=== PATIENT | male | born 1990 | race Caucasian/White ===

== ENCOUNTER 2020-07-05 20:48 | Emergency (ER) | payer SELFPAY ==
[~2020-07-05] VITALS: Ht 173 cm; Wt 125.5 kg
--- OUTSIDE RECORDS SUMMARY | 2020-07-05 20:54 | XMS REPORT ---
Author Author Samm Farooq Doctor Organization [facility] Address Unknown Phone Unavailable Care Team Providers Care Brick Tester Name Role Phone Migration, Doctor Unavailable Unavailable PROBLEMS Type Condition ICD9-CM Code UUQ04-MG Code Onset Dates Condition S tatus SNOMED Code Problem Snoring R06.83 Active 62662737 Problem Hypertriglyceridemia E78.1 Active 797285649 Problem Elevated liver enzymes R74.8 Active 507079278 Problem Type 2 diabetes mellitus without complication E11. 9 Active 89158577 Problem Benign essential hypertension I10 Active 0194045 Problem Daytime hypersomnia G47.19 Active [id number] ALLERGIES No Information ENCOUNTERS Encounter Location Date Diagnosis [facility] [address] [place] [id number] [address] [place] [phone] Aug, [facility] [address] [id number] [address] [place] [phone] Jul, [facility] [address] [id number] [address] [place] [address] Jul, [facility] [address] [id number] [address] [place] [address] Jul, Hypertriglyceridemia E78.1 [facility] [address] [id number] [address] [place] [address] Jul, [facility] [address] [id number] [address] [place] [address] Jul, Type 2 diabetes mellitus wit hout complication E11.9 ; Fatigue R53.83 ; Morbid obesity E66.01 and Benign essential hypertension I10 [facility] [address] [facility] [id number] [address] [place] [address] May, [facility] [address] [id number] [address] [place] [phone] May, Type 2 diabetes mellitus wit hout complication E11.9 and Fatigue R53.83 [facility] [address] [place] [id number] [address] [place] [phone] Mar, [place] [address] [address] Mar, [facility] [address] [place] [id number] [place] [address] Jan, Strep pharyngitis J02.0 ; Si de pain R10.9 and Morbid obesity E66.01 [place] [address] [address] Dec, Coughing R05 ; Type 2 diabet es mellitus without complication E11.9 ; Benign essential hypertension I10 ; Right otitis media with effusion H65.91 ; Acute upper respiratory infection, unspecified J06.9 and BMI 45.0-49.9, adult Z68.42 [facility] [address] [address] 04 Oct, 2017 Sore throat J02.9 ; Strep ph aryngitis J02.0 and BMI 40.0-44.9, adult Z68.41 [place] [address] [address] 03 Aug, 2017 Type 2 diabetes mellitus wit hout complication E11.9 and Benign essential hypertension I10 [place] [address] [address] March, [place] [address] [place] [id number] [place] [address] Dec, [facility] [address] [address] Dec, Pharyngitis due to other org anism J02.8 [place] [address] [place] [id number] [address] [place] [address] Dec, [place] [address] [address] Oct, [facility] [address] [facility] [place] [place] [id number] [address] [place] [phone] May, [facility] [address] [facility] [id number] [address] [place] [phone] May, [facility] [address] [facility] [id number] [address] [place] [address] May, Elevated liver enzymes R74.8 [facility] [address] [facility] [place] [id number] [address] [place] [phone] May, [facility] [address] [facility] [place] [id number] [address] [place] [phone] May, [facility] [address] [place] [id number] [address] [place] [phone] May, Benign essential hypertensio n I10 ; Type 2 diabetes mellitus without complication E11.9 and Elevated liver enzymes R74.8 [facility] [place] [id number] [place] [address] May, [facility] [address] [place] [id number] [address] [place] [address] May, [facility] [address] [place] [id number] [address] [place] [phone] Mar, Elevated liver enzymes R74.8 and Type 2 diabetes mellitus without complication E11.9 [place] [address] [place] [id number] [address] [place] [address] Jan, Benign essential hypertensio n I10 ; Fatigue R53.83 ; Family history of diabetes mellitus Z83.3 ; Snoring R06.83 and Daytime hypersomnia G47.19 [facility] [address] [place] [id number] [address] [place] [phone] Jan, Benign essential hypertensio n I10 ; Vomiting R11.10 ; Bronchitis J40 ; Headache R51 and Strep throat J02.0 [facility] IN [facility] [address] [id number] [address] [place] [address], [place] [address] 10 Oct, 2015 Acute bronchitis J20.9 and H TN (hypertension) I10 [facility] [address] [id number] [address] [place] [address], [place] [address] Jul, [facility] [address] [id number] [address] [place] [address], [place] [address] Mar, [facility] [address] [id number] [address] [place] [address], [place] [address] Mar, [facility] [address] [id number] [address] [place] [address], [place] [address] Aug, [facility] [address] [id number] [address] [place] [address], [place] [address] Aug, [facility] [address] [id number] [address] [place] [address], [place] [address] Aug, [facility] [address] [id number] [address] [place] [address], [place] [address] Aug, [facility] [address] [id number] [address] [place] [address], [place] [address] Jul, [facility] [address] [id number] [address] [place] [address], [place] [address] Jul, [facility] [address] [id number] [address] [place] [address], [place] [address] Jul, [facility] [address] [id number] [address] [place] [phone] Jul, [facility] [address] [id number] [address] [place] [address], [place] [address] Dec, [facility] [address] [id number] [address] [place] [address], [place] [address] Dec, [facility] [address] [id number] [address] [place] [phone] May, [facility] [address] [id number] [address] [place] [phone] May, [facility] [address] [facility] [place] [id number] [address] [address] May, IMMUNIZATIONS No Known Immunizations SOCIAL HISTORY Never Assessed REASON FOR VISIT PLAN OF CARE VITAL SIGNS Height 68 in 2014-09-27 Weight 283.3 lbs 2014-09-27 Temperature 102.4 degrees Fahrenheit 2014-09-27 Heart Rate 120 bpm 2014-09-27 Respiratory Rate 20 2014-09-27 Blood pressure systolic 134 mmHg 2014-09-27 Blood pressure diastolic 92 mmHg 2014-09-27 MEDICATIONS Unknown Medications RESULTS No Results PROCEDURES Procedure Date Ordered Result Body Site INFLUENZA ASSAY W/OPTIC Sep 27, 2014 INSTRUCTIONS MEDICATIONS ADMINISTERED No Known Medications MEDICAL (GENERAL) HISTORY Type Description Date Medical History HTN Medical History Diabetes Mellitus 01/2016 A1C 9.9 Medical History Elevated liver enzymes Surgical History No Surgical history information
--- OUTSIDE RECORDS SUMMARY | 2020-07-05 20:54 | XMS REPORT ---
Author Author Samm Farooq Doctor Organization [facility] Address Unknown Phone Unavailable Care Team Providers Care Lye Peel Operator Name Role Phone Migration, Doctor Unavailable Unavailable PROBLEMS Type Condition ICD9-CM Code ESV79-XP Code Onset Dates Condition S tatus SNOMED Code Problem Elevated liver enzymes R74.8 Active 395019472 Problem Hypertriglyceridemia E78.1 Active 142179005 Problem Obesity, morbid, BMI 40.0-49.9 E66.01 Active 494008675 Problem Type 2 diabetes mellitus without complication E11. 9 Active 04822872 Problem Benign essential hypertension I10 Active 3463251 Problem Daytime hypersomnia G47.19 Active [id number] Problem Snoring R06.83 Active 27928123 ALLERGIES No Information ENCOUNTERS Encounter Location Date Diagnosis [facility] [address] [facility] [id number] [address] [place] [phone] May, [facility] [address] [facility] [id number] [address] [place] [phone] May, [facility] [address] [facility] [id number] [address] [place] [phone] May, [facility] [address] [facility] [id number] [address] [place] [address] May, Encounter for laboratory darryn ting for COVID-[address] [facility] [address] [facility] [id number] [address] [place] [phone] May, [facility] [address] [facility] [id number] [address] [place] [phone] May, [facility] [address] [facility] [id number] [address] [place] [phone] March, [facility] [address] [facility] [id number] [address] [place] [phone] March, [facility] [address] [id number] [address] [place] [phone] Mar, Type 2 diabetes mellitus wit hout complication E11.9 ; Benign essential hypertension I10 ; Hypertriglyceridemia E78.1 and Obesity, morbid, BMI 40.0-49.[address] [facility] [address] [facility] [id number] [address] [place] [phone] Mar, Type 2 diabetes mellitus wit hout complication E11.9 and Benign essential hypertension I10 [facility] [address] [id number] [address] [place] [phone] Jan, [facility] [address] [facility] [id number] [address] [place] [phone] Dec, [facility] [address] [facility] [id number] [address] [place] [phone] Aug, [facility] [address] [facility] [id number] [address] [place] [phone] Jul, [facility] [address] [id number] [address] [place] [phone] Jul, [facility] [address] [facility] [id number] [address] [place] [address] Jul, Hypertriglyceridemia E78.1 [facility] [address] [facility] [id number] [address] [place] [phone] Jul, [facility] [address] [facility] [id number] [address] [place] [phone] Jul, Type 2 diabetes mellitus wit hout complication E11.9 ; Fatigue R53.83 ; Morbid obesity E66.01 and Benign essential hypertension I10 [facility] [address] [facility] [id number] [address] [place] [phone] May, [facility] [address] [facility] [id number] [address] [place] [address] May, Type 2 diabetes mellitus wit hout complication E11.[address] [facility] [address] [address] Mar, [place] [address] [address] Mar, [facility] [address] [address] Jan, Strep pharyngitis J02.0 ; Si de pain R10.9 and Morbid obesity E66.01 [place] [address] [id number] 03 Dec, 2017 Coughing R05 ; Type 2 diabet es mellitus without complication E11.9 ; Benign essential hypertension I10 ; Right otitis media with effusion H65.91 ; Acute upper respiratory infection, unspecified J06.9 and BMI 45.0-49.9, adult Z68.42 [facility] [place] [address] [address] Oct, Sore throat J02.9 ; Strep ph aryngitis J02.0 and BMI 40.0-44.9, adult Z68.41 [place] [address] [address] 03 Aug, 2017 Type 2 diabetes mellitus wit hout complication E11.9 and Benign essential hypertension I10 [place] [address] [address] March, [place] [address] [address] Dec, [facility] [address] [address] Dec, Pharyngitis due to other org anism J02.8 [place] [address] [address] Dec, [place] [address] [address] Oct, [place] [address] [place] [id number] [address] [place] [phone] May, [facility] [address] [address] May, [facility] [address] [place] [id number] [place] [address] May, Elevated liver enzymes R74.8 [facility] [address] [address] May, [facility] [address] [place] [id number] [address] [place] [phone] May, [facility] [address] [address] May, Benign essential hypertensio n I10 ; Type 2 diabetes mellitus without complication E11.9 and Elevated liver enzymes R74.8 [facility] IN [place] [address] [address] May, [facility] [address] [place] [id number] [address] [place] [phone] May, [facility] [address] [address] Mar, Elevated liver enzymes R74.8 and Type 2 diabetes mellitus without complication E11.9 [place] [address] [place] [id number] [address] [place] [phone] Jan, Benign essential hypertensio n I10 ; Fatigue R53.83 ; Family history of diabetes mellitus Z83.3 ; Snoring R06.83 and Daytime hypersomnia G47.19 [facility] WALK IN [address] [address] Jan, Benign essential hypertensio n I10 ; Vomiting R11.10 ; Bronchitis J40 ; Headache R51 and Strep throat J02.0 [facility] WALK IN [address] [address] Oct, Acute bronchitis J20.9 and H TN (hypertension) I10 [facility] [address] [id number] [address] [place] [address], [place] [address] Jul, [facility] [address] [id number] [address] [place] [address], [place] [address] Mar, [facility] [address] [id number] [address] [place] [address], [place] [address] Mar, [facility] [address] [id number] [address] [place] [address], [place] [address] Aug, [facility] [address] [id number] [address] [place] [address], [place] [address] Aug, [facility] [address] [id number] [address] [place] [address], [place] [address] Aug, [facility] [address] [id number] [address] [place] [address], [place] [phone] Aug, [facility] [address] [id number] [address] [place] [address], [place] [address] Jul, [facility] [address] [id number] [address] [place] [address], [place] [address] Jul, [facility] [address] [id number] [address] [place] [address], [place] [address] Jul, [facility] [address] [id number] [address] [place] [address], [place] [address] Jul, [facility] [address] [id number] [address] [place] [phone] Dec, [facility] [address] [id number] [address] [place] [phone] Dec, [facility] [address] [id number] [address] [place] [address], [place] [address] May, [facility] [address] [id number] [address] [place] [address], [place] [address] May, [facility] [address] [id number] [address] [place] [address] May, IMMUNIZATIONS No Known Immunizations SOCIAL HISTORY Never Assessed REASON FOR VISIT PLAN OF CARE VITAL SIGNS MEDICATIONS Unknown Medications RESULTS No Results PROCEDURES No Known procedures INSTRUCTIONS MEDICATIONS ADMINISTERED No Known Medications MEDICAL (GENERAL) HISTORY Type Description Date Medical History HTN Medical History Diabetes Mellitus 01/2016 A1C 9.9 Medical History Elevated liver enzymes Surgical History No Surgical history information
--- OUTSIDE RECORDS SUMMARY | 2020-07-05 20:54 | XMS REPORT ---
Author Author Samm Farooq Doctor Organization [facility] Address Unknown Phone Unavailable Care Team Providers Care Certified Adaptive Physical Educator Name Role Phone Migration, Doctor Unavailable Unavailable PROBLEMS Type Condition ICD9-CM Code RYR10-UU Code Onset Dates Condition S tatus SNOMED Code Problem Snoring R06.83 Active 90635524 Problem Hypertriglyceridemia E78.1 Active 548132250 Problem Elevated liver enzymes R74.8 Active 022340011 Problem Type 2 diabetes mellitus without complication E11. 9 Active 14586431 Problem Benign essential hypertension I10 Active 7032348 Problem Daytime hypersomnia G47.19 Active [id number] ALLERGIES No Information ENCOUNTERS Encounter Location Date Diagnosis [place] [address] [place] [phone] Jan, [facility] [address] [place] [id number] [address] [place] [phone] Dec, [facility] [address] [place] [id number] [address] [place] [phone] Aug, [facility] [address] [place] [phone] Jul, [facility] [address] [place] [address] Jul, [facility] [address] [place] [id number] [address] [place] [address] Jul, Hypertriglyceridemia E78.1 [facility] [address] [place] [id number] [place] [phone] Jul, [facility] [address] [place] [id number] [address] [place] [address] Jul, Type 2 diabetes mellitus wit hout complication E11.9 ; Fatigue R53.83 ; Morbid obesity E66.01 and Benign essential hypertension I10 [facility] [address] [place] [id number] [place] [phone] May, [place] [address] [address] May, Type 2 diabetes mellitus wit hout complication E11.9 and Fatigue R53.83 [place] [address] [address] Mar, [place] [address] [address] Mar, [facility] [place] [address] [address] Jan, Strep pharyngitis J02.0 ; Si de pain R10.9 and Morbid obesity E66.01 [place] [address] [address] Dec, Coughing R05 ; Type 2 diabet es mellitus without complication E11.9 ; Benign essential hypertension I10 ; Right otitis media with effusion H65.91 ; Acute upper respiratory infection, unspecified J06.9 and BMI 45.0-49.9, adult Z68.42 [facility] [place] [address] [address] Oct, Sore throat J02.9 ; Strep ph aryngitis J02.0 and BMI 40.0-44.9, adult Z68.41 [place] [address] [address] Aug, Type 2 diabetes mellitus wit hout complication E11.9 and Benign essential hypertension I10 [place] [address] [address] March, [place] [address] [address] Dec, [facility] [address] [address] Dec, Pharyngitis due to other org anism J02.8 [facility] [address] [facility] [id number] [address] [place] [address] Dec, [facility] [address] [facility] [id number] [address] [place] [phone] Oct, [facility] [address] [facility] [id number] [address] [place] [address] May, [facility] [address] [facility] [id number] [address] [place] [address] May, [facility] [address] [facility] [id number] [address] [place] [address] May, Elevated liver enzymes R74.8 [facility] [address] [place] [id number] [address] [place] [phone] May, [facility] [address] [place] [id number] [address] [place] [phone] May, [facility] [address] [facility] [id number] [address] [place] [address] May, Benign essential hypertensio n I10 ; Type 2 diabetes mellitus without complication E11.9 and Elevated liver enzymes R74.8 [facility] [address] [place] [id number] [address] [place] [address] May, [facility] [address] [facility] [id number] [address] [place] [phone] May, [facility] [address] [facility] [id number] [address] [place] [address] Mar, Elevated liver enzymes R74.8 and Type 2 diabetes mellitus without complication E11.9 [facility] [address] [facility] [id number] [address] [place] [address] Jan, Benign essential hypertensio n I10 ; Fatigue R53.83 ; Family history of diabetes mellitus Z83.3 ; Snoring R06.83 and Daytime hypersomnia G47.19 [facility] [address] [id number] [address] [place] [address] Jan, Benign essential hypertensio n I10 ; Vomiting R11.10 ; Bronchitis J40 ; Headache R51 and Strep throat J02.0 [facility] [address] [id number] [address] [place] [address] Oct, Acute bronchitis J20.9 and H TN (hypertension) I10 [facility] [address] [id number] [address] [place] [phone] Jul, [facility] [address] [id number] [address] [place] [address] Mar, [facility] [address] [id number] [address] [place] [address] Mar, [facility] [address] [id number] [address] [place] [phone] Aug, [facility] [address] [id number] [address] [place] [phone] Aug, [facility] [address] [id number] [address] [place] [phone] Aug, [facility] [address] [id number] [address] [place] [phone] Aug, [facility] [address] [id number] [address] [place] [phone] Jul, [facility] [address] [id number] [address] [place] [phone] Jul, [facility] [address] [id number] [address] [place] [phone] Jul, [facility] [address] [id number] [address] [place] [phone] Jul, [facility] [address] [id number] [address] [place] [phone] Dec, [facility] [address] [id number] [address] [place] [phone] Dec, [facility] [address] [facility] [id number] [address] [place] [phone] May, [facility] [address] [facility] [id number] [address] [place] [phone] May, [facility] [address] [facility] [id number] [address] [place] [address] May, IMMUNIZATIONS No Known Immunizations SOCIAL HISTORY [...]
--- OUTSIDE RECORDS SUMMARY | 2020-07-05 20:54 | XMS REPORT ---
Author Author Samm Farooq Doctor Organization [facility] Address Unknown Phone Unavailable Care Team Providers Care Customer Engagement Manager Name Role Phone Migration, Doctor Unavailable Unavailable PROBLEMS Type Condition ICD9-CM Code YZX20-XT Code Onset Dates Condition S tatus SNOMED Code Problem Elevated liver enzymes R74.8 Active 380179806 Problem Hypertriglyceridemia E78.1 Active 692686868 Problem Obesity, morbid, BMI 40.0-49.9 E66.01 Active 874351672 Problem Type 2 diabetes mellitus without complication E11. 9 Active 87050943 Problem Benign essential hypertension I10 Active 2513391 Problem Daytime hypersomnia G47.19 Active 84270624695916 Problem Snoring R06.83 Active 56127994 ALLERGIES No Information ENCOUNTERS Encounter Location Date Diagnosis [facility] [address] [place] [address] May, [facility] [address] [place] [id number] [address] [place] [phone] May, Encounter for laboratory darryn ting for COVID-19 virus Z11.59 [facility] [address] [place] [id number] [address] [place] [address] May, [facility] [address] [place] [id number] [address] [place] [address] May, [facility] [address] [place] [id number] [address] [place] [address] March, [facility] [address] [place] [id number] [address] [place] [address] March, [facility] [address] [place] [id number] [address] [place] [address] Mar, Type 2 diabetes mellitus wit hout complication E11.9 ; Benign essential hypertension I10 ; Hypertriglyceridemia E78.1 and Obesity, morbid, BMI 40.0-49.9 E66.01 [facility] [address] [id number] [address] [place] [address] Mar, Type 2 diabetes mellitus wit hout complication E11.9 and Benign essential hypertension I10 [facility] [address] [id number] [address] [place] [phone] Jan, [facility] [address] [id number] [address] [place] [address] Dec, [facility] [address] [id number] [address] [place] [address] Aug, [facility] [address] [id number] [address] [place] [address] Jul, [facility] [address] [id number] [address] [place] [address] Jul, [facility] [address] [facility] [id number] [address] [place] [phone] Jul, Hypertriglyceridemia E78.1 [facility] [address] [id number] [address] [place] [address] Jul, [facility] [address] [facility] [id number] [address] [place] [address] Jul, Type 2 diabetes mellitus wit hout complication E11.9 ; Fatigue R53.83 ; Morbid obesity E66.01 and Benign essential hypertension I10 [facility] [address] [id number] [address] [place] [address] May, [facility] [address] [id number] [address] [place] [address] May, Type 2 diabetes mellitus wit hout complication E11.9 and Fatigue R53.83 [facility] [address] [id number] [address] [place] [address] Mar, [facility] [address] [facility] [id number] [address] [place] [address] Mar, [facility] [address] [place] [id number] [address] [place] [address] 07 Jan, 2019 Strep pharyngitis J02.0 ; Si de pain R10.9 and Morbid obesity E66.01 [facility] [address] [address] 03 Dec, 2017 Coughing R05 ; Type 2 diabet es mellitus without complication E11.9 ; Benign essential hypertension I10 ; Right otitis media with effusion H65.91 ; Acute upper respiratory infection, unspecified J06.9 and BMI 45.0-49.9, adult Z68.42 [facility] [address] [address] 04 Oct, 2017 Sore throat J02.9 ; Strep ph aryngitis J02.0 and BMI 40.0-44.9, adult Z68.41 [place] [address] [address] 03 Aug, 2017 Type 2 diabetes mellitus wit hout complication E11.9 and Benign essential hypertension I10 [place] [address] [address] March, [place] [address] [address] Dec, [facility] [address] [address] Dec, Pharyngitis due to other org anism J02.8 [place] [address] [place] [id number] [address] [place] [address] Dec, [place] [address] [address] Oct, [place] [address] [address] May, [place] [address] [address] May, [place] [address] [address] May, Elevated liver enzymes R74.8 [facility] [address] [address] May, [facility] [address] [address] May, [facility] [address] [address] May, Benign essential hypertensio n I10 ; Type 2 diabetes mellitus without complication E11.9 and Elevated liver enzymes R74.8 [facility] [address] [address] May, [place] [address] [address] May, [facility] [address] [address] Mar, Elevated liver enzymes R74.8 and Type 2 diabetes mellitus without complication E11.9 [place] [address] [address] Jan, Benign essential hypertensio n I10 ; Fatigue R53.83 ; Family history of diabetes mellitus Z83.3 ; Snoring R06.83 and Daytime hypersomnia G47.19 [facility] [address] [address] Jan, Benign essential hypertensio n I10 ; Vomiting R11.10 ; Bronchitis J40 ; Headache R51 and Strep throat J02.0 [facility] [address] [address] Oct, Acute bronchitis J20.9 and H TN (hypertension) I10 [facility] [address] [address] Jul, [facility] [address] [address] Mar, [facility] [address] [id number] [address] [place] [address] Mar, [facility] [address] [id number] [address] [place] [address] Aug, [facility] [address] [id number] [address] [place] [address] Aug, [facility] [address] [id number] [address] [place] [address] Aug, [facility] [address] [id number] [address] [place] [address] Aug, [facility] [address] [id number] [address] [place] [address] Jul, [facility] [address] [id number] [address] [place] [address] Jul, [facility] [address] [id number] [address] [place] [address] Jul, [facility] [address] [id number] [address] [place] [address] Jul, [facility] [address] [id number] [address] [place] [address] Dec, [facility] [address] [id number] [address] [place] [address] Dec, [facility] [address] [id number] [address] [place] [address] May, [facility] [address] [id number] [address] [place] [address] May, [facility] [address] [id number] [address] [place] [address] May, IMMUNIZATIONS No Known Immunizations SOCIAL HISTORY [...]
--- OUTSIDE RECORDS SUMMARY | 2020-07-05 20:54 | XMS REPORT ---
Author Author Samm MONTALVO Organization [facility] Address [address] [place] [address] Care Team Providers Care Safe Technician Name Role Phone LIZ MONTALVO Unavailable PROBLEMS Type Condition ICD9-CM Code ATX80-WK Code Onset Dates Condition S tatus SNOMED Code Problem Snoring R06.83 Active 48158547 Problem Hypertriglyceridemia E78.1 Active 204209573 Problem Elevated liver enzymes R74.8 Active 170011711 Problem Type 2 diabetes mellitus without complication E11. 9 Active 39117760 Problem Benign essential hypertension I10 Active 5919756 Problem Daytime hypersomnia G47.19 Active [id number] ALLERGIES No Information ENCOUNTERS Encounter Location Date Diagnosis [facility] [address] [facility] [id number] [address] [place] [phone] Aug, [facility] [address] [facility] [id number] [address] [place] [address] Jul, [facility] [address] [facility] [id number] [address] [place] [address] Jul, [facility] [address] [facility] [id number] [address] [place] [address] Jul, Hypertriglyceridemia E78.1 [facility] [address] [facility] [id number] [address] [place] [address] Jul, [facility] [address] [facility] [id number] [address] [place] [address] Jul, Type 2 diabetes mellitus wit hout complication E11.9 ; Fatigue R53.83 ; Morbid obesity E66.01 and Benign essential hypertension I10 [facility] [address] [facility] [id number] [address] [place] [address] May, [facility] [address] [address] May, Type 2 diabetes mellitus wit hout complication E11.9 and Fatigue R53.83 [place] [address] [address] Mar, [place] [address] [address] Mar, [facility] [address] [address] Jan, Strep pharyngitis J02.0 ; Si de pain R10.9 and Morbid obesity E66.01 [place] [address] [address] 03 Dec, 2017 Coughing R05 ; Type 2 diabet es mellitus without complication E11.9 ; Benign essential hypertension I10 ; Right otitis media with effusion H65.91 ; Acute upper respiratory infection, unspecified J06.9 and BMI 45.0-49.9, adult Z68.42 [facility] [place] [address] [address] 04 Oct, 2017 Sore throat J02.9 ; Strep ph aryngitis J02.0 and BMI 40.0-44.9, adult Z68.41 [place] [address] [address] 03 Aug, 2017 Type 2 diabetes mellitus wit hout complication E11.9 and Benign essential hypertension I10 [place] [address] [address] March, [place] [address] [address] Dec, [facility] [address] [address] Dec, Pharyngitis due to other org anism J02.8 [place] [address] [address] Dec, [facility] [address] [facility] [id number] [address] [place] [address] Oct, [facility] [address] [facility] [id number] [address] [place] [address] May, [facility] [address] [facility] [id number] [address] [place] [address] May, [facility] [address] [facility] [id number] [address] [place] [address] May, Elevated liver enzymes R74.8 [facility] [address] [facility] [id number] [address] [place] [address] May, [facility] [address] [place] [id number] [address] [place] [address] May, [facility] [address] [place] [id number] [address] [place] [address] May, Benign essential hypertensio n I10 ; Type 2 diabetes mellitus without complication E11.9 and Elevated liver enzymes R74.8 [facility] [address] [facility] [id number] [address] [place] [address] May, [facility] [address] [facility] [id number] [address] [place] [address] May, [facility] [address] [facility] [id number] [address] [place] [address] Mar, Elevated liver enzymes R74.8 and Type 2 diabetes mellitus without complication E11.9 [facility] [address] [facility] [id number] [address] [place] [address] Jan, Benign essential hypertensio n I10 ; Fatigue R53.83 ; Family history of diabetes mellitus Z83.3 ; Snoring R06.83 and Daytime hypersomnia G47.19 [facility] [address] [facility] [id number] [address] [place] [address] Jan, Benign essential hypertensio n I10 ; Vomiting R11.10 ; Bronchitis J40 ; Headache R51 and Strep throat J02.0 [facility] [address] [id number] [address] [place] [place] [address], [place] [address] Oct, Acute bronchitis J20.9 and H TN (hypertension) I10 [facility] [address] [id number] [address] [place] [address], [place] [address] Jul, [facility] [address] [id number] [address] [place] [place] [address], [place] [address] Mar, [facility] [address] [id number] [address] [place] [place] [address], [place] [address] Mar, [facility] [address] [id number] [address] [place] [address], [place] [address] Aug, [facility] [address] [id number] [address] [place] [place] [address], [place] [address] Aug, [facility] [address] [id number] [address] [place] [address], [place] [address] Aug, [facility] [address] [id number] [address] [place] [place] [address], [place] [address] Aug, [facility] [address] [id number] [address] [place] [address], [place] [address] Jul, [facility] [address] [id number] [address] [place] [address] Jul, [facility] [address] [id number] [address] [place] [address], [place] [address] Jul, [facility] [address] [id number] [address] [place] [id number] Jul, [facility] [address] [id number] [address] [place] [id number] Dec, [facility] [address] [id number] [address] [place] [id number] Dec, [facility] [address] [id number] [address] [place] [phone] May, [facility] [address] [facility] [id number] [address] [place] [id number] May, [facility] [address] [facility] [id number] [address] [place] [phone] May, IMMUNIZATIONS No Known Immunizations SOCIAL HISTORY [...]
--- OUTSIDE RECORDS SUMMARY | 2020-07-05 20:54 | XMS REPORT ---
Author Author Samm Farooq Doctor Organization [facility] Address Unknown Phone Unavailable Care Team Providers Care Ground Operations Supervisor Name Role Phone Migration, Doctor Unavailable Unavailable PROBLEMS Type Condition ICD9-CM Code [id number] Code Onset Dates Condition S tatus SNOMED Code Problem Elevated liver enzymes R74.8 Active 096353516 Problem Hypertriglyceridemia E78.1 Active 001553542 Problem Obesity, morbid, BMI 40.0-49.9 E66.01 Active 183432487 Problem Type 2 diabetes mellitus without complication E11. 9 Active 59577818 Problem Benign essential hypertension I10 Active 6967035 Problem Daytime hypersomnia G47.19 Active [id number] Problem Snoring R06.83 Active [id number] ALLERGIES No Information ENCOUNTERS Encounter Location Date Diagnosis [facility] [id number] [place] [phone] May, [facility] [address] [place] [id number] [address] [place] [phone] March, [facility] [address] [place] [id number] [address] [place] [address] Mar, Type 2 diabetes mellitus wit hout complication E11.9 ; Benign essential hypertension I10 ; Hypertriglyceridemia E78.1 and Obesity, morbid, BMI 40.0-49.9 E66.01 [facility] [address] [place] [id number] [address] [place] [phone] Mar, Type 2 diabetes mellitus wit hout complication E11.9 and Benign essential hypertension I10 [facility] [address] [place] [id number] [address] [place] [phone] Jan, [facility] [address] [place] [id number] [address] [place] [phone] Dec, [facility] [address] [place] [id number] [address] [place] [phone] Aug, [facility] [address] [facility] [id number] [address] [place] [phone] Jul, [facility] [address] [facility] [id number] [address] [place] [phone] Jul, [facility] [address] [facility] [id number] [address] [place] [phone] Jul, Hypertriglyceridemia E78.1 [facility] [address] [facility] [id number] [address] [place] [phone] Jul, [facility] [address] [facility] [id number] [address] [place] [address] Jul, Type 2 diabetes mellitus wit hout complication E11.9 ; Fatigue R53.83 ; Morbid obesity E66.01 and Benign essential hypertension I10 [place] [address] [facility] [id number] [address] [place] [phone] May, [facility] [address] [place] [id number] [address] [place] [phone] May, Type 2 diabetes mellitus wit hout complication E11.9 and Fatigue R53.83 [facility] [address] [facility] [id number] [address] [place] [phone] Mar, [facility] [address] [place] [id number] [address] [place] [phone] Mar, [facility] [address] [facility] [id number] [address] [place] [phone] Jan, Strep pharyngitis J02.0 ; Si de pain R10.9 and Morbid obesity E66.01 [place] [address] [facility] [id number] [address] [place] [phone] Dec, Coughing R05 ; Type 2 diabet es mellitus without complication E11.9 ; Benign essential hypertension I10 ; Right otitis media with effusion H65.91 ; Acute upper respiratory infection, unspecified J06.9 and BMI 45.0-49.9, adult Z68.42 [facility] [address] [facility] [id number] [address] [place] [phone] Oct, Sore throat J02.9 ; Strep ph aryngitis J02.0 and BMI 40.0-44.9, adult Z68.41 [facility] [address] [facility] [id number] [address] [place] [phone] Aug, Type 2 diabetes mellitus wit hout complication E11.9 and Benign essential hypertension I10 [facility] [address] [facility] [id number] [address] [place] [phone] March, [facility] [address] [facility] [id number] [address] [place] [phone] Dec, [facility] [address] [facility] [id number] [address] [place] [phone] Dec, Pharyngitis due to other org anism J02.8 [facility] [address] [facility] [id number] [address] [place] [phone] Dec, [facility] [address] [place] [id number] [address] [place] [phone] Oct, [facility] [address] [facility] [id number] [address] [place] [phone] May, [facility] [address] [place] [id number] [address] [place] [phone] May, [facility] [address] [facility] [id number] [address] [place] [phone] May, Elevated liver enzymes R74.8 [facility] [address] [facility] [id number] [address] [place] [phone] May, [facility] [address] [place] [id number] [address] [place] [phone] May, [facility] [address] [place] [id number] [address] [place] [phone] May, Benign essential hypertensio n I10 ; Type 2 diabetes mellitus without complication E11.9 and Elevated liver enzymes R74.8 [facility] [address] [facility] [id number] [address] [place] [phone] May, [facility] [address] [address] May, [facility] [address] [address] Mar, Elevated liver enzymes R74.8 and Type 2 diabetes mellitus without complication E11.9 [facility] [address] [place] [id number] [place] [address] Jan, Benign essential hypertensio n I10 ; Fatigue R53.83 ; Family history of diabetes mellitus Z83.3 ; Snoring R06.83 and Daytime hypersomnia G47.19 [facility] [address] [address] Jan, Benign essential hypertensio n I10 ; Vomiting R11.10 ; Bronchitis J40 ; Headache R51 and Strep throat J02.0 [facility] [address] [address] Oct, Acute bronchitis J20.9 and H TN (hypertension) I10 [facility] [address] [address] Jul, [facility] [address] [phone] Mar, [facility] [address] [address] Mar, [facility] [address] [address] Aug, [facility] [address] [phone] Aug, [facility] [address] [address] Aug, [facility] [address] [id number] [address] [place] [phone] Aug, [facility] [address] [id number] [address] [place] [phone] Jul, [facility] [address] [id number] [address] [place] [phone] Jul, [facility] [address] [id number] [address] [place] [phone] Jul, [facility] [address] [id number] [address] [place] [address] Jul, [facility] [address] [id number] [address] [place] [phone] Dec, [facility] [address] [id number] [address] [place] [phone] Dec, [facility] [address] [id number] [address] [place] [phone] May, [facility] [address] [id number] [address] [place] [phone] May, [facility] [address] [id number] [address] [place] [phone] May, IMMUNIZATIONS No Known Immunizations SOCIAL HISTORY Never Assessed REASON FOR VISIT PLAN OF CARE VITAL SIGNS Height 68 in 2013-06-01 Weight 270.9 lbs 2013-06-01 Temperature 97.6 degrees Fahrenheit 2013-06-01 Heart Rate 78 bpm 2013-06-01 Respiratory Rate 18 2013-06-01 Blood pressure systolic 160 mmHg 2013-06-01 Blood pressure diastolic 90 mmHg 2013-06-01 MEDICATIONS Unknown Medications RESULTS No Results PROCEDURES Procedure Date Ordered Result Body Site ASSAY THYROID STIM HORMONE June 01, 2013 LIPID PANEL June 01, 2013 COMPREHEN METABOLIC PANEL June 01, 2013 VENIPUNCT, ROUTINE* June 01, 2013 INSTRUCTIONS MEDICATIONS ADMINISTERED No Known Medications MEDICAL (GENERAL) HISTORY Type Description Date Medical History HTN Medical History Diabetes Mellitus 01/2016 A1C 9.9 Medical History Elevated liver enzymes Surgical History No Surgical history information
--- OUTSIDE RECORDS SUMMARY | 2020-07-05 20:55 | XMS REPORT ---
Author Author Samm MOSER Organization [employer] Address Unknown Phone Unavailable Care Team Providers Care Radio Producer Name Role Phone CECILIA MOSER CP Unavailable Allergies No Known Allergies Problems Problem Type Condition Code Onset Dates Condition Statu s Problem Snoring R06.83 Active Problem Daytime hypersomnia G47.19 Active Problem Family history of diabetes mellitus Z83.3 Active Problem Type 2 diabetes mellitus without complication E11.9 Active Problem Benign essential hypertension I10 Active Problem Elevated liver enzymes R74.8 Activ e Medications No Known Medications Results No Known Results Summary Purpose [employer] Submission
--- OUTSIDE RECORDS SUMMARY | 2020-07-05 20:55 | XMS REPORT ---
Author Author Samm Farooq Doctor Organization [facility] Address Unknown Phone Unavailable Care Team Providers Care Instructor Knitting Name Role Phone Migration, Doctor Unavailable Unavailable PROBLEMS Type Condition ICD9-CM Code CYN86-[place] Code Onset Dates Condition S tatus SNOMED Code Problem Daytime hypersomnia G47.19 Active 18809309286804 Problem Snoring R06.83 Active 03652262 Problem Elevated liver enzymes R74.8 Active 429810956 Problem Type 2 diabetes mellitus without complication E11. 9 Active 03574724 Problem Benign essential hypertension I10 Active 9641970 ALLERGIES No Information ENCOUNTERS Encounter Location Date Diagnosis [place] [address] [address] Mar, [facility] [address] [address] Jan, Strep pharyngitis J02.0 ; Si de pain R10.9 and Morbid obesity E66.01 [place] [address] [address] 03 Dec, 2017 Coughing R05 ; Type 2 diabet es mellitus without complication E11.9 ; Benign essential hypertension I10 ; Right otitis media with effusion H65.91 ; Acute upper respiratory infection, unspecified J06.9 and BMI 45.0-49.9, adult Z68.42 [facility] [address] [id number] 04 Oct, 2017 Sore throat J02.9 ; Strep ph aryngitis J02.0 and BMI 40.0-44.9, adult Z68.41 [facility] [address] [place] [id number] [address] [place] [phone] 03 Aug, 2017 Type 2 diabetes mellitus wit hout complication E11.9 and Benign essential hypertension I10 [place] [address] [place] [address] March, [facility] [address] [id number] [address] [place] [phone] Dec, [facility] [address] [id number] [address] [place] [phone] Dec, Pharyngitis due to other org anism J02.8 [facility] [address] [id number] [address] [place] [phone] Dec, [facility] [address] [id number] [address] [place] [phone] Oct, [facility] [address] [id number] [address] [place] [phone] May, [facility] [address] [id number] [address] [place] [phone] May, [facility] [address] [id number] [address] [place] [phone] May, Elevated liver enzymes R74.8 [facility] [address] [id number] [address] [place] [phone] May, [facility] [address] [id number] [address] [place] [phone] May, [facility] [address] [id number] [address] [place] [phone] May, Benign essential hypertensio n I10 ; Type 2 diabetes mellitus without complication E11.9 and Elevated liver enzymes R74.8 [facility] [address] [id number] [address] [place] [address], [place] [address] May, [facility] [address] [id number] [address] [place] [phone] May, [facility] [address] [facility] [id number] [address] [place] [phone] Mar, Elevated liver enzymes R74.8 and Type 2 diabetes mellitus without complication E11.9 [facility] [address] [id number] [address] [place] [address] Jan, Benign essential hypertensio n I10 ; Fatigue R53.83 ; Family history of diabetes mellitus Z83.3 ; Snoring R06.83 and Daytime hypersomnia G47.19 [facility] [address] [facility] [id number] [address] [place] [phone] Jan, Benign essential hypertensio n I10 ; Vomiting R11.10 ; Bronchitis J40 ; Headache R51 and Strep throat J02.0 [facility] [address] [facility] [id number] [address] [place] [phone] Oct, Acute bronchitis J20.9 and H TN (hypertension) I10 [facility] [address] [facility] [id number] [address] [place] [phone] Jul, [facility] [address] [place] [id number] [address] [place] [phone] Mar, [facility] [address] [facility] [id number] [address] [place] [phone] Mar, [facility] [address] [place] [id number] [address] [place] [phone] Aug, [facility] [address] [facility] [id number] [address] [place] [phone] Aug, [facility] [address] [facility] [id number] [address] [place] [phone] Aug, [facility] [address] [facility] [id number] [address] [place] [phone] Aug, [facility] [address] [facility] [id number] [address] [place] [phone] Jul, [facility] [address] [facility] [id number] [address] [place] [phone] Jul, [facility] [address] [facility] [id number] [address] [place] [phone] Jul, [facility] [address] [facility] [id number] [address] [place] [phone] Jul, [facility] [address] [facility] [id number] [address] [place] [phone] Dec, [facility] [address] [facility] [id number] [address] [place] [phone] Dec, [facility] [address] [facility] [id number] [address] [place] [phone] May, [facility] [address] [facility] [id number] [address] [place] [phone] May, [facility] [address] [facility] [id number] [address] [place] [phone] May, IMMUNIZATIONS No Known Immunizations SOCIAL HISTORY Never Assessed REASON FOR VISIT [facility] [place]AN OF CARE VITAL SIGNS MEDICATIONS Medication Instructions Dosage Frequency Start Date End Date Duration S tatus promethazine 25 mg 1 tablet by Oral route every 6 hours PRN Aug, Active Lisinopril 20 mg take 2 tablets (40 mg) by oral route once daily Aug, Active RESULTS No Results PROCEDURES No Known procedures INSTRUCTIONS MEDICATIONS ADMINISTERED No Known Medications MEDICAL (GENERAL) HISTORY Type Description Date Medical History HTN Medical History Diabetes Mellitus 01/2016 A1C 9.9 Medical History Elevated liver enzymes Surgical History No know Surgical history
--- OUTSIDE RECORDS SUMMARY | 2020-07-05 20:55 | XMS REPORT ---
Author Author Samm MOSER Organization [facility] Address [address] [place] [address] Care Team Providers Care Road Engineer Freight Name Role Phone EHSAN CECILIA Unavailable PROBLEMS Type Condition ICD9-CM Code [id number] Code Onset Dates Condition S tatus SNOMED Code Problem Snoring R06.83 Active 31445405 Problem Daytime hypersomnia G47.19 Active 48686173271263 Problem Elevated liver enzymes R74.8 Active 275776125 Problem Benign essential hypertension I10 Active 4338821 Problem Type 2 diabetes mellitus without complication E11. 9 Active [id number] ALLERGIES No Information ENCOUNTERS Encounter Location Date Diagnosis [facility] [address] [id number] [address] [place] [phone] Dec, Coughing R05 ; Type 2 diabet es mellitus without complication E11.9 ; Benign essential hypertension I10 ; Right otitis media with effusion H65.91 ; Acute upper respiratory infection, unspecified J06.9 and BMI 45.0-49.9, adult Z68.42 [facility] [address] [id number] [address] [place] [id number] 04 Oct, 2017 Sore throat J02.9 ; Strep ph aryngitis J02.0 and BMI 40.0-44.9, adult Z68.41 [facility] [address] [place], [place] [id number] [address] [place] [phone] Aug, Type 2 diabetes mellitus wit hout complication E11.9 and Benign essential hypertension I10 [facility] [address] [place], [place] [id number] [address] [place] [address] March, [facility] [address] [place] [address] [id number] [address] [place] [address] Dec, [facility] [address] [facility] [id number] [address] [place] [phone] Dec, Pharyngitis due to other org anism J02.8 [facility] [address] [facility] [id number] [address] [place] [phone] Dec, [facility] [address] [facility] [id number] [address] [place] [address] Oct, [facility] [address] [facility] [id number] [address] [place] [address] May, [facility] [address] [facility] [id number] [address] [place] [address] May, [facility] [address] [facility] [id number] [address] [place] [address] May, Elevated liver enzymes R74.8 [facility] [address] [facility] [id number] [address] [place] [phone] May, [facility] [address] [facility] [id number] [address] [place] [address] May, [facility] [address] [facility] [id number] [address] [place] [address] May, Benign essential hypertensio n I10 ; Type 2 diabetes mellitus without complication E11.9 and Elevated liver enzymes R74.8 [facility] [address] [facility] [id number] [address] [place] [address] May, [facility] [address] [facility] [id number] [address] [place] [address] May, [facility] [address] [facility] [id number] [address] [place] [address] Mar, Elevated liver enzymes R74.8 and Type 2 diabetes mellitus without complication E11.9 [facility] [address] [facility] [id number] [address] [place] [address] Jan, Benign essential hypertensio n I10 ; Fatigue R53.83 ; Family history of diabetes mellitus Z83.3 ; Snoring R06.83 and Daytime hypersomnia G47.19 [facility] [address] [id number] [address] [place] [phone] Jan, Benign essential hypertensio n I10 ; Vomiting R11.10 ; Bronchitis J40 ; Headache R51 and Strep throat J02.0 [facility] [address] [id number] [address] [place] [phone] Oct, Acute bronchitis J20.9 and H TN (hypertension) I10 [facility] [address] [id number] [address] [place] [phone] Jul, [facility] [address] [id number] [address] [place] [phone] Mar, [facility] [address] [facility] [id number] [address] [place] [phone] Mar, [facility] [address] [facility] [id number] [address] [place] [phone] Aug, [facility] [address] [id number] [address] [place] [phone] Aug, [facility] [address] [facility] [id number] [address] [place] [phone] Aug, [facility] [address] [facility] [id number] [address] [place] [phone] Aug, [facility] [address] [facility] [id number] [address] [place] [address] Jul, [facility] [address] [id number] [address] [place] [phone] Jul, [facility] [address] [facility] [id number] [address] [place] [address] Jul, [facility] [address] [facility] [id number] [address] [place] [phone] Jul, [facility] [address] [facility] [id number] [address] [place] [address] Dec, [facility] [address] [facility] [id number] [address] [place] [address] Dec, [facility] [address] [facility] [id number] [address] [place] [phone] May, [facility] [address] [facility] [id number] [address] [place] [address] May, [facility] [address] [facility] [id number] [address] [place] [address] May, IMMUNIZATIONS No Known Immunizations SOCIAL HISTORY Never Assessed REASON FOR VISIT Refill request PLAN OF CARE VITAL SIGNS MEDICATIONS Medication Instructions Dosage Frequency Start Date End Date Duration S tatus MetFORMIN HCl ER 500 mg Orally twice a day-No furthe r refills,must keep appointment 2 tablets May, 28 days Active Lisinopril 40 mg Orally Once a day-NO further refills,mus t keep appointment! 1 tablet 28 days Active RESULTS No Results PROCEDURES No Known procedures INSTRUCTIONS MEDICATIONS ADMINISTERED No Known Medications MEDICAL (GENERAL) HISTORY Type Description Date Medical History HTN Medical History Diabetes Mellitus 01/2016 A1C 9.9 Medical History Elevated liver enzymes
--- OUTSIDE RECORDS SUMMARY | 2020-07-05 20:55 | XMS REPORT ---
Author Author Samm MOSER Organization [employer] Address Unknown Phone Unavailable Care Team Providers Care Wool Brusher Name Role Phone CECILIA MOSER CP Unavailable [...]
--- OUTSIDE RECORDS SUMMARY | 2020-07-05 20:55 | XMS REPORT ---
Author Author Samm Farooq Doctor Organization [facility] Address Unknown Phone Unavailable Care Team Providers Care Land Inspector Name Role Phone Migration, Doctor Unavailable Unavailable PROBLEMS Type Condition ICD9-CM Code [id number] Code Onset Dates Condition S tatus SNOMED Code Problem Daytime hypersomnia G47.19 Active 71612268366413 Problem Snoring R06.83 Active 65809584 Problem Elevated liver enzymes R74.8 Active 015588918 Problem Type 2 diabetes mellitus without complication E11. 9 Active 76126176 Problem Benign essential hypertension I10 Active 1382032 ALLERGIES No Information ENCOUNTERS Encounter Location Date Diagnosis [place] [address] [phone] Mar, [place] [address] [phone] Mar, [facility] WALK IN [facility] [address] [address] Jan, Strep pharyngitis J02.0 ; Si de pain R10.9 and Morbid obesity E66.01 [place] [address] [id number] 03 Dec, 2017 Coughing R05 ; Type 2 diabet es mellitus without complication E11.9 ; Benign essential hypertension I10 ; Right otitis media with effusion H65.91 ; Acute upper respiratory infection, unspecified J06.9 and BMI 45.0-49.9, adult Z68.42 [facility] IN [facility] [address] [id number] 04 Oct, 2017 Sore throat J02.9 ; Strep ph aryngitis J02.0 and BMI 40.0-44.9, adult Z68.41 [place] [address] [phone] Aug, Type 2 diabetes mellitus wit hout complication E11.9 and Benign essential hypertension I10 [facility] [address] [id number] [address] [place] [phone] March, [facility] [address] [id number] [address] [place] [address] Dec, [facility] [address] [id number] [address] [place] [phone] Dec, Pharyngitis due to other org anism J02.8 [facility] [address] [id number] [address] [place] [phone] Dec, [facility] [address] [id number] [address] [place] [phone] Oct, [facility] [address] [facility] [id number] [address] [place] [phone] May, [facility] [address] [id number] [address] [place] [phone] May, [facility] [address] [id number] [address] [place] [phone] May, Elevated liver enzymes R74.8 [facility] [address] [facility] [id number] [address] [place] [phone] May, [facility] [address] [id number] [address] [place] [phone] May, [facility] [address] [facility] [id number] [address] [place] [phone] May, Benign essential hypertensio n I10 ; Type 2 diabetes mellitus without complication E11.9 and Elevated liver enzymes R74.8 [facility] [address] [id number] [address] [place] [phone] May, [facility] [address] [facility] [place] [id number] [address] [place] [phone] May, [facility] [address] [id number] [address] [place] [phone] Mar, Elevated liver enzymes R74.8 and Type 2 diabetes mellitus without complication E11.9 [facility] [address] [phone] Jan, Benign essential hypertensio n I10 ; Fatigue R53.83 ; Family history of diabetes mellitus Z83.3 ; Snoring R06.83 and Daytime hypersomnia G47.19 [facility] [address] [address] Jan, Benign essential hypertensio n I10 ; Vomiting R11.10 ; Bronchitis J40 ; Headache R51 and Strep throat J02.0 [facility] [address] [address] Oct, Acute bronchitis J20.9 and H TN (hypertension) I10 [facility] [address] [phone] Jul, [facility] [address] [phone] Mar, [facility] [address] [address] Mar, [facility] [address] [address] Aug, [facility] [address] [address] Aug, [facility] [address] [address] Aug, [facility] [address] [address] Aug, [facility] [address] [address] Jul, [facility] [address] [id number] Jul, [facility] [address] [id number] [address] [place] [phone] Jul, [facility] [address] [id number] [address] [place] [phone] Jul, [facility] [address] [id number] [address] [place] [phone] Dec, [facility] [address] [id number] [address] [place] [phone] Dec, [facility] [address] [id number] [address] [place] [phone] May, [facility] [address] [id number] [address] [place] [phone] May, [facility] [address] [id number] [address] [place] [phone] May, IMMUNIZATIONS No Known Immunizations SOCIAL HISTORY Never Assessed REASON FOR VISIT [facility] [place] VITAL SIGNS MEDICATIONS Unknown Medications RESULTS No Results PROCEDURES No Known procedures INSTRUCTIONS MEDICATIONS ADMINISTERED No Known Medications MEDICAL (GENERAL) HISTORY Type Description Date Medical History HTN Medical History Diabetes Mellitus 01/2016 A1C 9.9 Medical History Elevated liver enzymes Surgical History No know Surgical history
--- OUTSIDE RECORDS SUMMARY | 2020-07-05 20:55 | XMS REPORT ---
Author Author Samm RAMOS Organization [facility] Address [address] [place] [address] Care Team Providers Care Elastic Tape Inserter Name Role Phone RACHEL FRANKIE Unavailable PROBLEMS Type Condition ICD9-CM Code YPS37-AU Code Onset Dates Condition S tatus SNOMED Code Problem Snoring R06.83 Active 36489186 Problem Daytime hypersomnia G47.19 Active 11852900315465 Problem Elevated liver enzymes R74.8 Active 425242412 Problem Benign essential hypertension I10 Active 6419226 Problem Type 2 diabetes mellitus without complication E11. 9 Active 91052575 ALLERGIES No Known Allergies ENCOUNTERS Encounter Location Date Diagnosis [facility] [address] [place] [address] [id number] [address] [place] [address] Dec, Coughing R05 ; Type 2 diabet es mellitus without complication E11.9 ; Benign essential hypertension I10 ; Right otitis media with effusion H65.91 ; Acute upper respiratory infection, unspecified J06.9 and BMI 45.0-49.9, adult Z68.42 [facility] [address] [place] [id number] [address] [place] [phone] 04 Oct, 2017 Sore throat J02.9 ; Strep ph aryngitis J02.0 and BMI 40.0-44.9, adult Z68.41 [facility] [address] [place] [id number] [address] [place] [address] Aug, Type 2 diabetes mellitus wit hout complication E11.9 and Benign essential hypertension I10 [place] [address] [place] [id number] [address] [place] [address] March, [facility] [address] [place] [id number] [address] [place] [address] Dec, [facility] [address] [place] [id number] [address] [place] [address] Dec, Pharyngitis due to other org anism J02.8 [facility] [address] [facility] [id number] [address] [place] [address] Dec, [facility] [address] [facility] [id number] [address] [place] [address] Oct, [facility] [address] [facility] [id number] [address] [place] [phone] May, [facility] [address] [facility] [id number] [address] [place] [address], [place] [address] May, [facility] [address] [facility] [id number] [address] [place] [address] May, Elevated liver enzymes R74.8 [facility] [address] [facility] [id number] [address] [place] [phone] May, [facility] [address] [facility] [id number] [address] [place] [address] May, [facility] [address] [facility] [id number] [address] [place] [phone] May, Benign essential hypertensio n I10 ; Type 2 diabetes mellitus without complication E11.9 and Elevated liver enzymes R74.8 [facility] [address] [facility] [id number] [address] [place] [phone] May, [facility] [address] [facility] [id number] [address] [place] [phone] May, [facility] [address] [facility] [id number] [address] [place] [address] Mar, Elevated liver enzymes R74.8 and Type 2 diabetes mellitus without complication E11.9 [facility] [address] [facility] [id number] [address] [place] [address] Jan, Benign essential hypertensio n I10 ; Fatigue R53.83 ; Family history of diabetes mellitus Z83.3 ; Snoring R06.83 and Daytime hypersomnia G47.19 [facility] [address] [facility] [id number] [address] [place] [phone] Jan, Benign essential hypertensio n I10 ; Vomiting R11.10 ; Bronchitis J40 ; Headache R51 and Strep throat J02.0 [facility] [address] [id number] [address] [place] [phone] Oct, Acute bronchitis J20.9 and H TN (hypertension) I10 [facility] [address] [id number] [address] [place] [phone] Jul, [facility] [address] [facility] [id number] [address] [place] [address] Mar, [facility] [address] [facility] [id number] [address] [place] [phone] Mar, [facility] [address] [facility] [id number] [address] [place] [phone] Aug, [facility] [address] [id number] [address] [place] [phone] Aug, [facility] [address] [facility] [id number] [address] [place] [phone] Aug, [facility] [address] [facility] [id number] [address] [place] [phone] Aug, [facility] [address] [facility] [id number] [address] [place] [phone] Jul, [facility] [address] [id number] [address] [place] [phone] Jul, [facility] [address] [facility] [id number] [address] [place] [phone] Jul, [facility] [address] [facility] [id number] [address] [place] [phone] Jul, [facility] [address] [facility] [id number] [address] [place] [phone] Dec, [facility] [address] [facility] [id number] [address] [place] [phone] Dec, [facility] [address] [facility] [id number] [address] [place] [phone] May, [facility] [address] [facility] [id number] [address] [place] [phone] May, [facility] [address] [facility] [id number] [address] [place] [address] May, IMMUNIZATIONS No Known Immunizations SOCIAL HISTORY Never Assessed REASON FOR VISIT sore throat/cough and chest congestion started Th JStrasserRN PLAN OF CARE Activity Details Follow Up prn Reason: VITAL SIGNS Height 68 in 2017-10-04 Weight 289 lbs 2017-10-04 Temperature 97.3 degrees Fahrenheit 2017-10-04 Heart Rate 68 bpm 2017-10-04 Respiratory Rate 18 2017-10-04 BMI 43.94 kg/m2 2017-10-04 Blood pressure systolic 144 mmHg 2017-10-04 Blood pressure diastolic 100 mmHg 2017-10-04 MEDICATIONS Medication Instructions Dosage Frequency Start Date End Date Duration S tatus MetFORMIN HCl ER 500 mg Orally twice a day-No furthe r refills,must keep appointment 2 tablets May, 28 days Active Amoxicillin 500 MG Orally every 12 hrs 1 capsule 12h Oct, 7 Oct, 10 day(s) Active Lisinopril 40 mg Orally Once a day-NO further refills,mus t keep appointment! 1 tablet 28 days Active Glucocard Expression Test Test Strips In Vitro 2 times a day ; and as needed as directed May, 30 days Active RESULTS Name Result Date Reference Range STREP A (IN HOUSE) 2017-10-04 STREP A positive Control + Lot # [id number] Exp date 08/30/2018 PROCEDURES Procedure Date Ordered Result Body Site STREP A ASSAY W/OPTIC Oct 04, 2017 INSTRUCTIONS MEDICATIONS ADMINISTERED No Known Medications MEDICAL (GENERAL) HISTORY Type Description Date Medical History HTN Medical History Diabetes Mellitus 01/2016 A1C 9.9 Medical History Elevated liver enzymes
--- OUTSIDE RECORDS SUMMARY | 2020-07-05 20:55 | XMS REPORT ---
Author Author Samm MOSER Organization [facility] Address [address] [place] [address] Care Team Providers Care Remedial Reading Teacher Name Role Phone EHSAN CECILIA Unavailable PROBLEMS Type Condition ICD9-CM Code BUG48-ZL Code Onset Dates Condition S tatus SNOMED Code Problem Snoring R06.83 Active 50933146 Problem Daytime hypersomnia G47.19 Active [id number] Problem Elevated liver enzymes R74.8 Active 699623644 Problem Benign essential hypertension I10 Active 8732896 Problem Type 2 diabetes mellitus without complication E11. 9 Active [id number] ALLERGIES No Known Allergies ENCOUNTERS Encounter Location Date Diagnosis [facility] [address] [id number] [address] [place] [address] Dec, Coughing R05 ; Type 2 diabet es mellitus without complication E11.9 ; Benign essential hypertension I10 ; Right otitis media with effusion H65.91 ; Acute upper respiratory infection, unspecified J06.9 and BMI 45.0-49.9, adult Z68.42 [facility] WALK IN [facility] [address] [id number] [address] [place] [address] 04 Oct, 2017 Sore throat J02.9 ; Strep ph aryngitis J02.0 and BMI 40.0-44.9, adult Z68.41 [facility] [address] [place] [id number] [address] [place] [address] Aug, Type 2 diabetes mellitus wit hout complication E11.9 and Benign essential hypertension I10 [facility] [address] [place], [place] [id number] [address] [place] [address] March, [facility] [address] [id number] [address] [place] [address] Dec, [facility] [address] [facility] [id number] [address] [place] [address] Dec, Pharyngitis due to other org anism J02.8 [facility] [address] [facility] [id number] [address] [place] [address] Dec, [facility] [address] [facility] [id number] [address] [place] [phone] Oct, [facility] [address] [facility] [id number] [address] [place] [address] May, [facility] [address] [facility] [id number] [address] [place] [address] May, [facility] [address] [facility] [id number] [address] [place] [address] May, Elevated liver enzymes R74.8 [facility] [address] [facility] [id number] [address] [place] [address] May, [facility] [address] [facility] [id number] [address] [place] [address] May, [facility] [address] [facility] [id number] [address] [place] [address] May, Benign essential hypertensio n I10 ; Type 2 diabetes mellitus without complication E11.9 and Elevated liver enzymes R74.8 [facility] [address] [facility] [id number] [address] [place] [address] May, [facility] [address] [facility] [id number] [address] [place] [address] May, [facility] [address] [facility] [id number] [address] [place] [address] Mar, Elevated liver enzymes R74.8 and Type 2 diabetes mellitus without complication E11.9 [facility] [address] [facility] [id number] [address] [place] [address] Jan, Benign essential hypertensio n I10 ; Fatigue R53.83 ; Family history of diabetes mellitus Z83.3 ; Snoring R06.83 and Daytime hypersomnia G47.19 [facility] [address] [id number] [address] [place] [address] Jan, Benign essential hypertensio n I10 ; Vomiting R11.10 ; Bronchitis J40 ; Headache R51 and Strep throat J02.0 [facility] [address] [id number] [address] [place] [address] 10 Oct, 2015 Acute bronchitis J20.9 and H TN (hypertension) I10 [facility] [address] [id number] [address] [place] [address] Jul, [facility] [address] [id number] [address] [place] [address] Mar, [facility] [address] [facility] [id number] [address] [place] [address] Mar, [facility] [address] [facility] [id number] [address] [place] [address] Aug, [facility] [address] [id number] [address] [place] [phone] Aug, [facility] [address] [id number] [address] [place] [address] Aug, [facility] [address] [facility] [id number] [address] [place] [address] Aug, [facility] [address] [id number] [address] [place] [address] Jul, [facility] [address] [id number] [address] [place] [address] Jul, [facility] [address] [facility] [id number] [address] [place] [address] Jul, [facility] [address] [id number] [address] [place] [address] Jul, [facility] [address] [facility] [id number] [address] [place] [address] Dec, [facility] [address] [facility] [id number] [address] [place] [address] Dec, [facility] [address] [facility] [id number] [address] [place] [address] May, [facility] [address] [facility] [id number] [address] [place] [address] May, [facility] [address] [facility] [id number] [address] [place] [address] May, IMMUNIZATIONS No Known Immunizations SOCIAL HISTORY Never Assessed REASON FOR VISIT cough--CarleyleachMA, Chest pain as well , Refill on Lisinopril and Metformin PLAN OF CARE Activity Details Follow Up 3 Months Reason:DM HTN VITAL SIGNS Height 68 in 2017-12-03 Weight 298.0 lbs 2017-12-03 Temperature 98.8 degrees Fahrenheit 2017-12-03 Heart Rate 90 bpm 2017-12-03 Respiratory Rate 20 2017-12-03 BMI 45.31 kg/m2 2017-12-03 Blood pressure systolic 136 mmHg 2017-12-03 Blood pressure diastolic 88 mmHg 2017-12-03 MEDICATIONS Medication Instructions Dosage Frequency Start Date End Date Duration S tatus Augmentin 875-125 MG Orally every 12 hrs 1 tablet 12h Dec, 2 018 Dec, 07 days Active MetFORMIN HCl ER 500 mg Orally twice a day 2 tablets 12h 16 Nino, 201 6 28 days Active Glucocard Expression Test Test Strips In Vitro 2 times a day ; and as needed as directed May, 30 days Not-Taking Promethazine-Codeine 6.25-10 MG/5ML Orally every 6 hrs 5 ml as need ed 6h Dec, Not-Taking Lisinopril 20 mg Orally Once a day 1 tablet 24h 30 d ays Active RESULTS Name Result Date Reference Range INFLUENZA A & B (IN HOUSE) 2017-12-03 INFLUENZA A neg INFLUENZA B neg Control + Lot # [id number] Exp date 01/2020 A1C (IN HOUSE) 2017-12-03 A1C IN HOUSE 6.2 4.3 - 5.6 % Previous A1c 9.9 Lot [id number] Exp date 07/2019 PROCEDURES Procedure Date Ordered Result Body Site INFLUENZA ASSAY W/OPTIC Dec 03, 2017 GLYCATED HEMOGLOBIN TEST Dec 03, 2017 INSTRUCTIONS MEDICATIONS ADMINISTERED No Known Medications MEDICAL (GENERAL) HISTORY Type Description Date Medical History HTN Medical History Diabetes Mellitus 01/2016 A1C 9.9 Medical History Elevated liver enzymes
--- OUTSIDE RECORDS SUMMARY | 2020-07-05 20:55 | XMS REPORT ---
Author Author Samm HUNTER Organization [employer] Address Unknown Phone Unavailable Care Team Providers Care Furnace Roaster Name Role Phone LIZ HUNTER CP Unavailable Allergies, Adverse Reactions, Alerts Substance Reaction Event Type N.K.D.A. Info Not Available Non Drug Allergy Problems Problem Type Condition Code Onset Dates Condition Statu s Assessment Acute bronchitis J20.9 Active Assessment HTN (hypertension) I10 Active Problem Routine general medical examination at [facility] V70.0 Active Problem Pure hyperglyceridemia 272.1 Activ e Problem Essential hypertension, benign 401.1 Active Problem Diarrhea 787.91 Active Problem Nausea with vomiting 787.01 Active Problem Screening for hypertension V81.1 A ctive Problem Acute upper respiratory infections of unspecified site 465.9 Active Medications Medication Code System Code Instructions Start Date End Date Status Dosage Vicks NyQuil Multi-Symptom NDC 0 not defined Tessalon Perles FORMERLY NAMED [facility] [address]-03 100 MG Orally Three times a day Nov 09, 2015 Nov 14, 2015 1 capsule as needed Lisinopril FORMERLY NAMED [facility] [address]-58 20 MG Orally Onc e a day- must have est care appt for futher refills 2 tablet Albuterol Sulfate HFA FORMERLY NAMED [facility] [address]-98 108 (90 Ba se) MCG/ACT Inhalation every 4 hrs Nov 09, 2015 2 puffs as neede d Mucinex FORMERLY NAMED [facility] [address]-81 not define d Procedures Procedure Coding System Code Date Office Visit, Est Pt., Level 3 CPT-4 49964 D 2014 Vital Signs Date/Time: Nov 09, 2015 Temperature 97.2 F Weight 317.6 lbs Height 68 in BMI 48.29 Index Blood Pressure Diastolic 98 mmHg Blood Pressure Systolic 146 mmHg Cardiac Monitoring Heart Rate 88 bpm Results No Known Results Summary Purpose [employer] Submission
--- OUTSIDE RECORDS SUMMARY | 2020-07-05 20:55 | XMS REPORT ---
Author Author Samm MYERS Organization [facility] Address [address] [place] [address] Care Team Providers Care Director Of Home Economics Name Role Phone VITOR MYERS Unavailable PROBLEMS Type Condition ICD9-CM Code [id number] Code Onset Dates Condition S tatus SNOMED Code Problem Snoring R06.83 Active 15466601 Problem Hypertriglyceridemia E78.1 Active 261737194 Problem Elevated liver enzymes R74.8 Active 164235879 Problem Type 2 diabetes mellitus without complication E11. 9 Active 42868085 Problem Benign essential hypertension I10 Active 4425896 Problem Daytime hypersomnia G47.19 Active [id number] ALLERGIES No Information ENCOUNTERS Encounter Location Date Diagnosis [facility] [address] [facility] [id number] [address] [place] [address] Jul, [facility] [address] [facility] [id number] [address] [place] [address] Jul, [facility] [address] [facility] [id number] [address] [place] [address] Jul, Hypertriglyceridemia E78.1 [facility] [address] [facility] [id number] [address] [place] [address] Jul, [facility] [address] [id number] [address] [place] [address] Jul, Type 2 diabetes mellitus wit hout complication E11.9 ; Fatigue R53.83 ; Morbid obesity E66.01 and Benign essential hypertension I10 [facility] [address] [facility] [id number] [address] [place] [address] May, [facility] [address] [facility] [id number] [address] [place] [address] May, Type 2 diabetes mellitus wit hout complication E11.9 and Fatigue R53.83 [place] [address] [phone] Mar, [place] [address] [address] Mar, [facility] WALK IN [place] [address] [address] Jan, Strep pharyngitis J02.0 ; Si de pain R10.9 and Morbid obesity E66.01 [place] [address] [address] Dec, Coughing R05 ; Type 2 diabet es mellitus without complication E11.9 ; Benign essential hypertension I10 ; Right otitis media with effusion H65.91 ; Acute upper respiratory infection, unspecified J06.9 and BMI 45.0-49.9, adult Z68.42 [facility] IN [place] [address] [address] Oct, Sore throat J02.9 ; Strep ph aryngitis J02.0 and BMI 40.0-44.9, adult Z68.41 [place] [address] [address] 03 Aug, 2017 Type 2 diabetes mellitus wit hout complication E11.9 and Benign essential hypertension I10 [place] [address] [address] March, [place] [address] [address] Dec, [facility] WALK IN [facility] [address] [address] Dec, Pharyngitis due to other org anism J02.8 [place] [address] [address] Dec, [place] [address] [address] Oct, [facility] [address] [id number] [address] [place] [address] May, [facility] [address] [address] May, [facility] [address] [address] May, Elevated liver enzymes R74.8 [facility] [address] [address] May, [facility] [address] [address] May, [facility] [address] [address] May, Benign essential hypertensio n I10 ; Type 2 diabetes mellitus without complication E11.9 and Elevated liver enzymes R74.8 [facility] IN [place] [address] [address] May, [facility] [address] [phone] May, [facility] [address] [address] Mar, Elevated liver enzymes R74.8 and Type 2 diabetes mellitus without complication E11.9 [facility] [address] [address] Jan, Benign essential hypertensio n I10 ; Fatigue R53.83 ; Family history of diabetes mellitus Z83.3 ; Snoring R06.83 and Daytime hypersomnia G47.19 [facility] WALK IN [address] [phone] Jan, Benign essential hypertensio n I10 ; Vomiting R11.10 ; Bronchitis J40 ; Headache R51 and Strep throat J02.0 [facility]ALK IN [facility] [address] [place] [address] Oct, Acute bronchitis J20.9 and H TN (hypertension) I10 [facility] [address] [id number] [address] [place] [address], [place] [address] Jul, [facility] [address] [id number] [address] [place] [address], [place] [address] Mar, [facility] [address] [id number] [address] [place] [address], [place] [address] Mar, [facility] [address] [id number] [address] [place] [address], [place] [address] Aug, [facility] [address] [id number] [address] [place] [address], [place] [address] Aug, [facility] [address] [id number] [address] [place] [address], [place] [address] Aug, [facility] [address] [id number] [address] [place] [address], [place] [address] Aug, [facility] [address] [id number] [address] [place] [address], [place] [address] Jul, [facility] [address] [id number] [address] [place] [address], [place] [address] Jul, [facility] [address] [id number] [address] [place] [address], [place] [address] Jul, [facility] [address] [id number] [address] [place] [address], [place] [address] Jul, [facility] [address] [id number] [address] [place] [address] Dec, [facility] [address] [id number] [address] [place] [address], [place] [address] Dec, [facility] [address] [id number] [address] [place] [address], [place] [address] May, [facility] [address] [id number] [address] [place] [address] May, [facility] [address] [facility] [id number] [address] [place] [address] May, IMMUNIZATIONS No Known Immunizations SOCIAL HISTORY [...]
--- OUTSIDE RECORDS SUMMARY | 2020-07-05 20:55 | XMS REPORT ---
Author Author Samm MARTINEZ Organization [employer] Address Unknown Phone Unavailable Care Team Providers Care Cemetery Workers Supervisor Name Role Phone JOSH MARTINEZ CP Unavailable Allergies No Known Allergies Problems Problem Type Condition ICD-9 Code Onset Dates Condition Statu s Problem Routine general medical examination at [facility] ility V70.0 Active Problem Pure hyperglyceridemia 272.1 Activ e Problem Essential hypertension, benign 401.1 Active Problem Diarrhea 787.91 Active Problem Nausea with vomiting 787.01 Active Problem Screening for hypertension V81.1 A ctive Problem Acute upper respiratory infections of unspecified site 465.9 Active Medications Medication Code System Code Instructions Start Date End Date Status Dosage Lisinopril [facility] [address]-53 20 MG Orally Onc e a day- must have [facility] care appt for futher refills 2 tablet Results No Known Results Summary Purpose [employer] Submission
--- OUTSIDE RECORDS SUMMARY | 2020-07-05 20:55 | XMS REPORT ---
Author Author Samm MOSER [facility] Address [address] [place] [address] Care Team Providers Care Food And Nutrition Professor Name Role Phone CECILIA MOSER Unavailable PROBLEMS Type Condition ICD9-CM Code [id number] Code Onset Dates Condition S tatus SNOMED Code Problem Snoring R06.83 Active 17994420 Problem Family history of diabetes mellitus Z83.3 Active 174370908 Problem Type 2 diabetes mellitus without complication E11. 9 Active 50417304 Problem Elevated liver enzymes R74.8 Active 972561042 Problem Daytime hypersomnia G47.19 Active 21449880605301 Problem Benign essential hypertension I10 Active 1971822 ALLERGIES Unknown Allergies SOCIAL HISTORY No smoking Hx information available PLAN OF CARE VITAL SIGNS MEDICATIONS Unknown Medications RESULTS No Results PROCEDURES No Known procedures IMMUNIZATIONS No Known Immunizations
--- OUTSIDE RECORDS SUMMARY | 2020-07-05 20:55 | XMS REPORT ---
Author Author Samm MOSER [facility] Address [address] [place] [address] Care Team Providers Care Assembly Instructions Writer Name Role Phone CECILIA MOSER Unavailable PROBLEMS Type Condition ICD9-CM Code PHN70-SJ Code Onset Dates Condition S tatus SNOMED Code Problem Snoring R06.83 Active 55784957 Problem Family history of diabetes mellitus Z83.3 Active 041874590 Problem Type 2 diabetes mellitus without complication E11. 9 Active 13104244 Problem Elevated liver enzymes R74.8 Active 815877960 Problem Daytime hypersomnia G47.19 Active 70041184587807 Problem Benign essential hypertension I10 Active 1336629 ALLERGIES Unknown Allergies SOCIAL HISTORY No smoking Hx information available PLAN OF CARE VITAL SIGNS MEDICATIONS Unknown Medications RESULTS No Results PROCEDURES No Known procedures IMMUNIZATIONS No Known Immunizations
--- OUTSIDE RECORDS SUMMARY | 2020-07-05 20:55 | XMS REPORT ---
Author Author Samm MOSER Organization [facility] Address [address] [place] [address] Care Team Providers Care Nutrition Professor Name Role Phone CECILIA MOSER Unavailable PROBLEMS Type Condition ICD9-CM Code [id number] Code Onset Dates Condition S tatus SNOMED Code Problem Snoring R06.83 Active 29726904 Problem Family history of diabetes mellitus Z83.3 Active 391119387 Problem Type 2 diabetes mellitus without complication E11. 9 Active 77506802 Problem Elevated liver enzymes R74.8 Active 821795596 Problem Daytime hypersomnia G47.19 Active 83127174272567 Problem Benign essential hypertension I10 Active 7384215 ALLERGIES No Information SOCIAL HISTORY Never Assessed PLAN OF CARE VITAL SIGNS MEDICATIONS Unknown Medications RESULTS No Results PROCEDURES No Known procedures IMMUNIZATIONS No Known Immunizations MEDICAL (GENERAL) HISTORY Type Description Date Medical History HTN Medical History Diabetes Mellitus 01/2016 A1C 9.9 Medical History Elevated liver enzymes
--- OUTSIDE RECORDS SUMMARY | 2020-07-05 20:55 | XMS REPORT | Continuity of Care Document ---
Author Organization Unknown Address Unknown Phone Unavailable Allergies There is no data. Medications There is no data. Problems Date Dx Coded Attending Type Code Diagnosis Diagnosed By 06/01/2013 JOSH MARTINEZ DO 401.1 HYPERTENSION, BENIGN ESSENTIAL 06/01/2013 JOSH MARTINEZ DO V70.0 ROUTINE GENERAL MEDICAL EXAMINATION AT A HEALTH CARE FACILITY 06/01/2013 LIZ MONTALVO MD 401.1 HYPERTENSION, BENIGN ESSENTIAL 06/01/2013 LIZ MONTALVO MD V70.0 ROUTINE GENERAL MEDICAL EXAMINATION AT A HEALTH CARE FACILITY 06/01/2013 JOSH MARTINEZ DO 401.1 HYPERTENSION, BENIGN ESSENTIAL 06/01/2013 JOSH MARTINEZ DO V70.0 ROUTINE GENERAL MEDICAL EXAMINATION AT A HEALTH CARE FACILITY 06/07/2013 JOSH MARTINEZ DO 272.1 HYPERTRIGLYCERIDEMIA 06/07/2013 LIZ MONTALVO MD 272.1 HYPERTRIGLYCERIDEMIA 06/07/2013 JOSH MARTINEZ DO 272.1 HYPERTRIGLYCERIDEMIA 07/27/2014 LIZ MONTALVO MD V81.1 HYPERTENSION SCREENING 07/27/2014 JOSH MARTINEZ DO V81.1 HYPERTENSION SCREENING 09/27/2014 JOSH MARTINEZ DO 465.9 UPPER RESPIRATORY INFECTION 09/27/2014 JOSH MARTINEZ DO 787.01 NAUSEA WITH VOMITING 09/27/2014 JOSH MARTINEZ DO 787.91 DIARRHEA Procedures Code [place] [address] ROUT INE VENIPUNCTURE 06/01/2013 48516 CMP 06/01/2013 12960 LIPI D PANEL 06/01/2013 33823 TSH 06/01/2013 2000F BLOO D PRESSURE CHECK 07/28/2014 00897 INFL UENZA A & B (IN-HOUSE) 09/27/2014 Results Test Result Range TSH - 07/02/19 16:01 TSH 1.98 mIU/L 0.40-4.50 COVID-19 ([facility]) - 06/07/20 13:04 Encounters ACCT No. Visit Date/Time Discharge Status Pt. Type Provider Facility Loc./Unit Complaint [id number] 09/27/2014 17:59:00 09/27/2014 23:59: 59 CLS Outpatient JOSH MARTINEZ DO [id number] 07/27/2014 18:24:00 07/27/2014 23:59: 59 CLS Outpatient LIZ MONTALVO MD [id number] 06/01/2013 08:00:00 06/01/2013 23:59: 59 CLS Outpatient JOSH MARTINEZ DO [id number] 07/05/2020 20:50:[address] Emergency JORGE LUIS COLEMAN, CABRERA Garcia [facility] ER [place], [id number] 07/05/2020 08:00:00 ACT Outpatient LIZ LICONA [facility] [id number] 06/07/2020 10:30:00 Document Registration [id number] 07/02/2019 16:40:00 Document Registration
--- NOTE | 2020-07-05 21:08 | ED Chest Pain ---
General Chief Complaint: Psych/Social Disorder Stated Complaint: PALPATIONS, Source: patient Exam Limitations: no limitations History of Present Illness Date Seen by Provider: Jul 05, 2020 Time Seen by Provider: 21:07 Initial Comments To ER with reports of intermittent chest pressure. This occurs about every 10 minutes and lasts for just a brief second when it comes about. No shortness of breath or cough or fevers. He's had these symptoms for quite some time. He saw primary care yesterday and was started on buspirone for anxiety. He states that he always feels anxious and tired, he feels relaxed now that he is here he states. Timing/Duration: intermittent Severity/Quality: moderate Radiation: no radiation ASA po HEAD OF CYTOGENETICS: No NTG SL HEAD OF CYTOGENETICS: No Associated Symptoms: denies symptoms Allergies and Home Medications Allergies Coded Allergies: No Known Drug Allergies (Unverified , 07/05/20) Patient Home Medication List Home Medication List Reviewed: Yes Review of Systems Review of Systems Constitutional: see HPI EENTM: No Symptoms Reported Respiratory: No Symptoms Reported Cardiovascular: No Symptoms Reported Gastrointestinal: No Symptoms Reported Genitourinary: No Symptoms Reported Musculoskeletal: no symptoms reported Skin: no symptoms reported Psychiatric/Neurological: See HPI, Anxiety Endocrine: No Symptoms Reported Past Pzkjqjy-Bkkpdm-Xokdpw Hx Patient Social History Recent Foreign Travel: No Contact w/Someone Who Travel: No Physical Exam Vital Signs Vital Signs - First Documented 07/05/20 20:57 Temp 36.3 Pulse 89 Resp 12 B/P (MAP) 155/96 (115) Pulse Ox 99 O2 Delivery Room Air Capillary Refill : Height, Weight, BMI Height: '" Weight: lbs. oz. kg; BMI Method: General Appearance: No Apparent Distress, WD/WN, Obese Neck: Full Range of Motion Respiratory: Normal Breath Sounds, No Accessory Muscle Use, No Respiratory Distress Cardiovascular: Regular Rate, Rhythm, Normal Peripheral Pulses Gastrointestinal: Non Tender, Soft Neurologic/Psychiatric: Alert, Oriented x3 Skin: Normal Color, Warm/Dry Progress/Results/Core Measures Results/Orders Lab Results Laboratory Tests Test 07/05/20 21:15 Range/Units White Blood Count 9.0 4.3-11.0 10^3/uL Red Blood Count 5.26 4.35-5.85 10^6/uL Hemoglobin 15.0 13.3-17.7 G/DL Hematocrit 45 40-54 % Mean Corpuscular Volume 85 80-99 FL Mean Corpuscular Hemoglobin 29 25-34 PG Mean Corpuscular Hemoglobin Concent 34 32-36 G/DL Red Cell Distribution Width 12.9 10.0-14.5 % Platelet Count 193 130-400 10^3/uL Mean Platelet Volume 11.0 H 7.4-10.4 FL Neutrophils (%) (Auto) 73 42-75 % Lymphocytes (%) (Auto) 18 12-44 % Monocytes (%) (Auto) 8 0-12 % Eosinophils (%) (Auto) 1 0-10 % Basophils (%) (Auto) 0 0-10 % Neutrophils # (Auto) 6.5 1.8-7.8 X 10^3 Lymphocytes # (Auto) 1.6 1.0-4.0 X 10^3 Monocytes # (Auto) 0.7 0.0-1.0 X 10^3 Eosinophils # (Auto) 0.1 0.0-0.3 10^3/uL Basophils # (Auto) 0.0 0.0-0.1 10^3/uL D-Dimer < 0.27 0.00-0.49 UG/ML Sodium Level 138 135-145 MMOL/L Potassium Level 3.6 3.6-5.0 MMOL/L Chloride Level 106 98-107 MMOL/L Carbon Dioxide Level 20 L 21-32 MMOL/L Anion Gap 12 5-14 MMOL/L Blood Urea Nitrogen 18 7-18 MG/DL Creatinine 0.90 0.60-1.30 MG/DL Estimat Glomerular Filtration Rate > 60 BUN/Creatinine Ratio 20 Glucose Level 95 70-105 MG/DL Calcium Level 9.4 8.5-10.1 MG/DL Corrected Calcium 8.5-10.1 MG/DL Total Bilirubin 0.5 0.1-1.0 MG/DL Aspartate Amino Transf (AST/SGOT) 25 5-34 U/L Alanine Aminotransferase (ALT/SGPT) 48 0-55 U/L Alkaline Phosphatase 65 40-136 U/L Troponin I < 0.028 <0.028 NG/ML Total Protein 8.0 6.4-8.2 GM/DL Albumin 4.6 H 3.2-4.5 GM/DL My Orders Orders - LUZ BHARDWAJ [facility] Cbc With Automated Diff (07/05/20 21:03) Troponin I (07/05/20 21:03) Ekg Tracing (07/05/20 21:03) Fibrin Degradation Products (07/05/20 21:03) Comprehensive Metabolic Panel (07/05/20 21:03) Chest 1 View, Ap/Pa Only (07/05/20 21:03) Lorazepam Tablet (Ativan Tablet) (07/05/20 21:15) Medications Given in ED Current Medications Medications Dose Ordered Sig/Ant Route Start Time Stop Time Status Last Admin Dose Admin Lorazepam 0.5 mg ONCE ONCE PO 07/05/20 21:15 07/05/20 21:16 DC 07/05/20 21:15 0.5 MG Vital Signs/I&O 07/05/20 20:57 Temp 36.3 Pulse 89 Resp 12 B/P (MAP) 155/96 (115) Pulse Ox 99 O2 Delivery Room Air Departure Impression Primary Impression: Anxiety Disposition: HOME, SELF-CARE Condition: Stable Departure-Patient Inst. Decision time for Depature: 22:04 Referrals: [facility] (PCP) Primary Care Physician LIZ LICONA (Family) Primary Care Physician Patient Instructions: Anxiety, Adult (DC) Add. Discharge Instructions: 1. Return to ER for any concerns 2. Medication as directed 3. All discharge instructions reviewed with patient and/or family. Voiced understanding. Scripts Lorazepam (Ativan) 0.5 Mg Tablet 0.5 MG PO BID PRN for ANXIETY for 7 Days, #10 TAB Prov: LUZ BHARDWAJ APRN 07/05/20 Work/School Note: Work Release Form Date Seen in the Emergency Department: Jul 05, 2020 Return to Work: Jul 07, 2020 LUZ BHARDWAJ APRN Jul 05, 2020 21:08
[2020-07-05] MEDS ORDERED: LORazepam 0.5 MG (ATIVAN) TABLET PO ONE (21:15)
[2020-07-05 21:23] LABS: BASOPHILS % (AUTO) 0 % (0-10); EOSINOPHILS # (AUTO) 0.1 10^3/uL (0.0-0.3); EOSINOPHILS % (AUTO) 1 % (0-10); HEMATOCRIT 45 % (40-54); LYMPHOCYTES # (AUTO) 1.6 X 10^3 (1.0-4.0); LYMPHOCYTES % (AUTO) 18 % (12-44); MEAN CORPUSCULAR HEMOGLOBIN 29 PG (25-34); MEAN CORPUSCULAR HGB CONC 34 G/DL (32-36); MEAN CORPUSCULAR VOLUME 85 FL (80-99); MONOCYTES # (AUTO) 0.7 X 10^3 (0.0-1.0); MONOCYTES % (AUTO) 8 % (0-12); NEUTROPHILS # (AUTO) 6.5 X 10^3 (1.8-7.8); NEUTROPHILS % (AUTO) 73 % (42-75); PLATELET COUNT 193 10^3/uL (130-400); RED CELL DISTRIBUTION WIDTH 12.9 % (10.0-14.5)
[2020-07-05 21:43] LABS: ALANINE AMINOTRANSFERASE 48 U/L (0-55); ALBUMIN 4.6 GM/DL (3.2-4.5); ALKALINE PHOSPHATASE 65 U/L (40-136); BILIRUBIN,TOTAL 0.5 MG/DL (0.1-1.0); BUN/CREATININE RATIO 20; CALCIUM 9.4 MG/DL (8.5-10.1); CARBON DIOXIDE 20 MMOL/L (21-32); CHLORIDE 106 MMOL/L (98-107); GFR ESTIMATED > 60; GLUCOSE 95 MG/DL (70-105); POTASSIUM 3.6 MMOL/L (3.6-5.0); SODIUM 138 MMOL/L (135-145)
--- NOTE | 2020-07-05 22:02 | Diagnostic Imaging Report ---
INDICATION: Anxiety and chest wall pain. EXAMINATION: Frontal chest was obtained at 9:34 p.m. FINDINGS: Heart and mediastinal silhouette are normal in appearance. Lungs are clear. There is no pneumothorax or pleural fluid. IMPRESSION: Negative chest. Dictated by: Dictated on workstation # [id number]
[2020-07-05] MEDS ORDERED: LORA-404 PO (22:05)
[2020-07-05 22:08] VITALS: BP 129/85
== END 2020-07-05 22:08 | disposition home or self-care (01) ==
LOC: EDUNIT# 20:48 → ER 20:50
DX: F41.9 Anxiety disorder, unspecified (principal); E66.9 Obesity, unspecified
CPT/HCPCS: 36415; 71045; 80053; 84484; 85025; 85379; 93005

== ENCOUNTER 2020-07-09 21:26 | Emergency (ER) | payer SELFPAY ==
[~2020-07-09] VITALS: Ht 173 cm; Wt 123.0 kg
[~2020-07-09 21:26] MED LIST: LORA-404 PO
--- OUTSIDE RECORDS SUMMARY | 2020-07-09 21:33 | XMS REPORT | Continuity of Care Document ---
Author Organization Unknown Address Unknown Phone Unavailable Allergies Active Description Code Type Severity Reaction Onset Reported/Identified Relationship to Patient Clinical Status Yes No Known Drug Allergies [id number] Drug Allergy Unknown N/A 07/05/2020 Medications There is no data. Problems Date Dx Coded Attending Type Code Diagnosis Diagnosed By 06/01/2013 JOSH MARTINEZ DO 401.1 HYPERTENSION, BENIGN ESSENTIAL 06/01/2013 JOSH MARTIENZ DO V70.0 ROUTINE GENERAL MEDICAL EXAMINATION AT [...] VOMITING 09/27/2014 JOSH MARTINEZ DO 787.91 DIARRHEA 07/07/2020 LUZ BHARDWAJ APRN Ot E66 .9 OBESITY, UNSPECIFIED 07/07/2020 LUZ BHARDWAJ APRN Ot F41 .9 ANXIETY DISORDER, UNSPECIFIED 07/07/2020 LUZ BHARDWAJ APRN Ot E66 .9 OBESITY, UNSPECIFIED 07/07/2020 LUZ BHARDWAJ APRN Ot F41 .9 ANXIETY DISORDER, UNSPECIFIED Procedures Code Description [place] [address] ROUT INE VENIPUNCTURE 06/01/2013 63900 CMP 06/01/2013 69676 LIPI D PANEL 06/01/2013 33406 TSH 06/01/2013 2000F BLOO D PRESSURE CHECK 07/28/2014 25164 INFL UENZA A & B (IN-HOUSE) 09/27/2014 Results Test Result Range TSH - 07/02/19 16:01 TSH 1.98 mIU/L 0.40-4.50 COVID-19 ([facility]) - 06/07/20 13:04 CMP - 07/05/20 08:09 GLUCOSE 111 mg/dL 65-99 UREA NITROGEN (BUN) 15 mg/dL 7-25 CREATININE 0.73 mg/dL 0.60-1.35 eGFR NON-AFR. EQUATORIAL GUINEAN 123 mL/min/1.73m2 > OR = 60 eGFR 142 mL/min/1.73m2 > OR = 60 BUN/CREATININE RATIO NOT APPLICABLE (calc) 6-22 SODIUM 139 mmol/L 135-146 POTASSIUM 3.8 mmol/L 3.5-5.3 CHLORIDE 104 mmol/L 98-110 CARBON DIOXIDE 26 mmol/L 20-32 CALCIUM 9.1 mg/dL 8.6-10.3 PROTEIN, TOTAL 7.4 g/dL 6.1-8.1 ALBUMIN 4.5 g/dL 3.6-5.1 GLOBULIN 2.9 g/dL (calc) 1.9-3.7 ALBUMIN/GLOBULIN RATIO 1.6 (calc) 1.0-2. 5 BILIRUBIN, TOTAL 0.6 mg/dL 0.2-1.2 ALKALINE PHOSPHATASE 64 U/L 36-130 AST 22 U/L 10-40 ALT 47 U/L 9-46 CBC - 07/05/20 08:09 WHITE BLOOD CELL COUNT 6.6 Thousand/uL 3 .8-10.8 RED BLOOD CELL COUNT 5.53 Million/uL 4.2 0-5.80 HEMOGLOBIN 15.9 g/dL 13.2-17.1 HEMATOCRIT 48.5 % 38.5-50.0 MCV 87.7 fL 80.0-100.0 MCH 28.8 pg 27.0-33.0 MCHC 32.8 g/dL 32.0-36.0 RDW 13.2 % 11.0-15.0 PLATELET COUNT 205 Thousand/uL 140-400 MPV 11.6 fL 7.5-12.5 ABSOLUTE NEUTROPHILS 4679 cells/uL 1500- 7800 ABSOLUTE LYMPHOCYTES 1214 cells/uL 850-3 900 ABSOLUTE MONOCYTES 554 cells/uL 200-950 ABSOLUTE EOSINOPHILS 119 cells/uL 15-500 ABSOLUTE BASOPHILS 33 cells/uL 0-200 NEUTROPHILS 70.9 % NRG LYMPHOCYTES 18.4 % NRG MONOCYTES 8.4 % NRG EOSINOPHILS 1.8 % NRG BASOPHILS 0.5 % NRG Complete blood count (CBC) with automate d white blood cell (WBC) differential - 07/05/20 21:15 Blood leukocytes automated count (number/volume) 9.0 10*3/uL 4.3-11.0 Blood erythrocytes automated count (number/volume) 5.26 10*6/uL 4.35-5.85 Venous blood hemoglobin measurement (mass/volume) 15.0 g/dL 13.3-17.7 Blood hematocrit (volume fraction) 45 % 40-54 Automated erythrocyte mean corpuscular volume 85 [ foz_us] 80-99 Automated erythrocyte mean corpuscular h emoglobin (mass per erythrocyte) 29 pg 25-34 Automated erythrocyte mean corpuscular h emoglobin concentration measurement (mass/volume) 34 g/dL 32-36 Automated erythrocyte distribution width ratio 12. 9 % 10.0- 14.5 Automated blood platelet count (count/volume) 193 10*3/uL 130-400 Automated blood platelet mean volume measurement 11.0 [foz_us] 7.4-10.4 Automated blood neutrophils/100 leukocytes 73 % 42-75 Automated blood lymphocytes/100 leukocytes 18 % 12-44 Blood monocytes/100 leukocytes 8 % 0-12 Automated blood eosinophils/100 leukocytes 1 % 0-10 Automated blood basophils/100 leukocytes 0 % 0-10 Blood neutrophils automated count (number/volume) 6.5 10*3 1.8-7.8 Blood lymphocytes automated count (number/volume) 1.6 10*3 1.0-4.0 Blood monocytes automated count (number/volume) 0. 7 10*3 0.0-1.0 Automated eosinophil count 0.1 10*3/uL 0 .0-0.3 Automated blood basophil count (count/volume) 0.0 10*3/uL 0.0-0.1 Fibrin D-dimer FEU measurement in platel et poor plasma (mass/volume) - 07/05/20 21:15 Fibrin D-dimer FEU measurement in platelet poor plasma (mass/volume) < ug/mL 0.00-0.49 Comprehensive metabolic panel - 07/05/20 21:15 Serum or plasma sodium measurement (moles/volume) 138 mmol/L 135-145 Serum or plasma potassium measurement (moles/volume) 3.6 mmol/L 3.6-5.0 Serum or plasma chloride measurement (moles/volume) 106 mmol/L 98-107 Carbon dioxide 20 mmol/L 21-32 Serum or plasma anion gap determination (moles/volume) 12 mmol/L 5-14 Serum or plasma urea nitrogen measurement (mass/volume ) 18 mg/dL 7-18 Serum or plasma creatinine measurement (mass/volume) 0.90 mg/dL 0.60-1.30 Serum or plasma urea nitrogen/creatinine mass ratio 20 NRG Serum or plasma creatinine measurement w ith calculation of estimated glomerular filtration rate > NRG Serum or plasma glucose measurement (mass/volume) 95 mg/dL 70-105 Serum or plasma calcium measurement (mass/volume) 9.4 mg/dL 8.5-10.1 Serum or plasma total bilirubin measurement (mass/volu me) 0.5 mg/dL 0.1-1.0 Serum or plasma alkaline phosphatase rosie surement (enzymatic activity/volume) 65 U/L 40-136 Serum or plasma aspartate aminotransfera se measurement (enzymatic activity/volume) 25 U/L 5-34 Serum or plasma alanine aminotransferase measurement (enzymatic activity/volume) 48 U/L 0-55 Serum or plasma protein measurement (mass/volume) 8.0 g/dL 6.4-8.2 Serum or plasma albumin measurement (mass/volume) 4.6 g/dL 3.2-4.5 Serum or plasma troponin i.cardiac measu rement (mass/volume) - 07/05/20 21:15 Serum or plasma troponin i.cardiac measurement (mass/v olume) < ng/mL <0.028 Encounters ACCT No. Visit Date/Time Discharge Status Pt. Type Provider Facility Loc./Unit Complaint [id number] 09/27/2014 17:59:00 09/27/2014 23:59: 59 CLS Outpatient JOSH MARTINEZ DO [id number] 07/27/2014 18:24:00 07/27/2014 23:59: 59 CLS Outpatient LIZ MONTALVO MD [id number] 06/01/2013 08:00:00 06/01/2013 23:59: 59 CLS Outpatient MARTINEZ JOSH KLEIN [id number] 07/05/2020 20:50:00 020 22:08:00 DIS Outpatient LUZ BHARDWAJ APRN [facility] ER PALPATIONS, [id number] 07/09/2020 21:28:[address] Emergency RAMIRO FALCON MD [facility] ER R SIDED FACE NUMBNESS [id number] 07/08/2020 10:05:00 ACT Outpatient LIZ LICONA [facility] [id number] 07/05/2020 08:00:00 Document Registration [id number] 06/07/2020 10:30:00 Document Registration [id number] 07/02/2019 16:40:00 Document Registration
[2020-07-09 21:43] VITALS: BP 153/100
[2020-07-09] MEDS ORDERED: LORA-404 (21:45)
[2020-07-09] MEDS ORDERED: CANA100T PO (21:51)
[2020-07-09] MEDS ORDERED: METF-397 PO (21:51)
[2020-07-09] MEDS ORDERED: LISI-556 PO (21:51)
--- NOTE | 2020-07-09 22:22 | ED Psychosocial ---
General Chief Complaint: Psych/Social Disorder Stated Complaint: R SIDED FACE NUMBNESS Nursing Triage Note: intermittant right sided facial numbness. pt reports increased anxiety since begining of covid pandemic Source: patient Exam Limitations: no limitations (ANIVAL ROMAN STUDENT) History of Present Illness Date Seen by Provider: Jul 09, 2020 Time Seen by Provider: 22:00 Initial Comments Samm Mijares is a 30 year old male seen today due to right sided facial tinging and numbness sensation. He reports that he was seen in the ED on July 05 and was treated for a panic attack, given lorazepam to take if his symptoms recurred. He also reports seeing his PCP at the [facility] in [place], and was started on Buspirone. He reports that since he began buspirone he has had tingling on the R side of his face, as well as intermittent burning sensation to his b/l arms. He has not taken anything for this sensation, he reports the lorazepam made him feel down. He does report that cold damp cloths help the sensation in his arms. He is concerned about having a stroke. Denies any weakness, slurring of speech or facial asymmetries, fever, chills, sore throat or congestion, SOB, CP, palpitations. Timing/Duration: yesterday Severity: mild Associated Symptoms: anxiety (ANIVAL ROMAN STUDENT) Initial Comments Mom and dad both have high blood pressure and diabetes as well as the patient. He says his blood sugars lately have been running under 150. He's not routinely checking his temperature however. He is taking the medication as prescribed. His symptoms began the same time he started buspirone. (RAMIRO FALCON) Allergies and Home Medications Allergies Coded Allergies: No Known Drug Allergies (Unverified , 07/05/20) Home Medications Lisinopril 5 Mg Tablet, Unknown Dose PO DAILY, (Reported) Lorazepam 0.5 Mg Tablet, 0.5 MG PO BID PRN for ANXIETY Prescribed by: LUZ BHARDWAJ on 07/05/20 1583 Patient Home Medication List Home Medication List Reviewed: Yes (RAMIRO FALCON) Review of Systems Constitutional: No chills, No fever, No weakness EENTM: No vision loss, No nose congestion, No throat pain Respiratory: No cough, No short of breath Cardiovascular: No chest pain, No palpitations Gastrointestinal: No nausea, No vomiting Psychiatric/Neurological: Anxiety; Denies Headache; Numbness, Paresthesia, Tingling; Denies Weakness (ANIVAL ROMAN) All Other Systems Reviewed Negative Unless Noted: Yes (RAMIRO FALCON) Past Pvsklli-Aozwge-Zkoyrf Hx Patient Social History Alcohol Use: Denies Use Recreational Drug Use: No Smoking Status: Never a Smoker 2nd Hand Smoke Exposure: No Recent Foreign Travel: No Contact w/Someone Who Travel: No Recent Infectious Disease Expo: No Recent Hopitalizations: No Physical Abuse: No Sexual Abuse: No Mistreated: No Fear: No (ANIVAL ROMAN) Alcohol Use: Denies Use Recreational Drug Use: No Smoking Status: Never a Smoker (RAMIRO FALCON) Immunizations Up To Date Tetanus Booster (TDap): Unknown (ANIVAL ROMAN) Seasonal Allergies Seasonal Allergies: No (ANIVAL ROMAN) Past Medical History Surgeries: No Respiratory: No Cardiac: Yes High Cholesterol, Hypertension Neurological: No Genitourinary: No Gastrointestinal: No Musculoskeletal: No Endocrine: Yes Diabetes, Insulin dep HEENT: No Cancer: No Psychosocial: Yes Anxiety Integumentary: No Blood Disorders: No (ANIVAL ROMAN) Physical Exam Vital Signs - First Documented 07/09/20 21:43 Temp 36.8 Pulse 91 Resp 16 B/P (MAP) 153/100 (117) Pulse Ox 97 O2 Delivery Room Air (RAMIRO FALCON) Capillary Refill : Less Than 3 Seconds (ANIVAL ROMAN) Height, Weight, BMI Height: '" Weight: lbs. oz. kg; 41.00 BMI Method: General Appearance: no apparent distress, obese HEENT: PERRL/EOMI; No scleral icterus (R), No scleral icterus (L) Neck: non-tender, full range of motion, supple, normal inspection Respiratory: lungs clear, normal breath sounds, no respiratory distress, no accessory muscle use Cardiovascular: normal peripheral pulses, regular rate, rhythm, no edema, no JVD, no murmur Extremities: non-tender, normal inspection, no pedal edema, no calf tenderness Neurologic/Psychiatric: no motor/sensory deficits, alert, normal mood/affect, oriented x 3 Appearance/Memory: appropriate appearance, appropriate insight, neat Behavior/Eye Contact: cooperative, good eye contact, normal speech Skin: normal color, warm/dry (ANIVAL ROMAN MED STUDENT) Peripheral Pulses: 2+ Radial Pulses (R), 2+ Radial Pulses (L) Gastrointestinal: normal bowel sounds, non tender (RAMIRO FALCON) Progress/Results/Core Measures Results/Orders Vital Signs/I&O 07/09/20 21:43 Temp 36.8 Pulse 91 Resp 16 B/P (MAP) 153/100 (117) Pulse Ox 97 O2 Delivery Room Air (RAMIRO FALCON) Blood Pressure Mean: 117 Progress Progress Note : Time: 22:31 Progress Note Patient seems to be having some generalized upper extremity paresthesias and right facial numbness. He does not appear to have any neurologic deficits otherwise. Differential includes Mejia's palsy or paresthesias related to his recent starting buspirone. Ear nose and throat exam unremarkable. We recommend he discontinue the buspirone since he's only been on it for a couple days and follow-up next week with his primary care provider. We have answered all of his questions and he is agreement with this plan. We have given him good return precautions should he experience any worsening neurologic deficits besides paresthesias. I attest that I saw this patient alongside the medical student and agree with his documented history, physical exam and review of systems except as otherwise noted. (RAMIRO FALCON) Departure Impression Primary Impression: Paresthesia of upper extremity Additional Impressions: Facial paresthesia Usw-ghtl-foowfzp adverse reaction to medication Qualified Codes: T88.7XXA - Unspecified adverse effect of drug or medicament, initial encounter Disposition: 01 HOME, SELF-CARE Condition: Stable Departure-Patient Inst. Decision time for Depature: 22:34 (RAMIRO FALCON) [place] [facility] [place] Primary Care Physician LIZ LICONA (Family) Primary Care Physician Patient Instructions: Side Effects From Medicines Add. Discharge Instructions: I would suggest that the tingling/numbness is related to the buspirone which you recently started. You may stop taking it now and discuss it in the next week or 2 with your primary care doctor or if you would prefer you can talk your doctor first before you stop taking it. Sometimes the symptoms will minimize over time if you keep taking the medication. Return to the ER if you have drooping of the face, weakness or other worrisome symptoms such as shortness of breath, chest pain etc. All discharge instructions reviewed with patient and/or family. Voiced understanding. NIH Stroke Scale NIH Stroke Scale NIH : Select: Initial Level of Consciousness: 0=Alert Level of Consciousness-Questio: 0=Answers both month/age LOC Commands: 0=Performs both tasks Gaze: 0=Normal Visual Mcnally: 0=No visual loss Facial Movement (Facial Paresi: 0=Normal symmetrical mnt Motor Function-Arms Right: 0=No drift Motor Function-Arms Left: 0=No drift Motor Function-Legs Right: 0=No drift Motor Function-Legs Left: 0=No drift Limb Ataxia: 0=Absent Sensory: 0=Normal:no loss Best Language: 0=No aphasia Dysarthria: 0=Normal Extinction & Inattention: 0=No abnormality NIH Stroke Scale Score: 0 (RAMIRO FALCON) ANIVAL ROMAN MED STUDENT Jul 09, 2020 22:22 RAMIRO FALCON Jul 09, 2020 22:36
== END 2020-07-09 22:39 | disposition home or self-care (01) ==
LOC: EDUNIT# 21:26 → ER 21:28
DX: R20.2 Paresthesia of skin (principal); T43.595A Adverse effect of other antipsychotics and neuroleptics, initial encounter; I10 Essential (primary) hypertension; E11.9 Type 2 diabetes mellitus without complications; F41.9 Anxiety disorder, unspecified
CPT/HCPCS: 99283

== ENCOUNTER 2020-07-12 23:40 | Emergency (ER) | payer SELFPAY ==
[~2020-07-12] VITALS: Ht 172 cm; Wt 119.7 kg
[~2020-07-12 23:40] MED LIST changes: +CANA100T PO; +LISI-556 PO; +LORA-404; +METF-397 PO
--- OUTSIDE RECORDS SUMMARY | 2020-07-12 23:48 | XMS REPORT | Continuity of Care Document ---
Author Organization Unknown Address Unknown Phone Unavailable Allergies Active Description Code Type Severity Reaction Onset Reported/Identified Relationship to Patient Clinical Status Yes No Known Drug Allergies [id number] Drug Allergy Unknown N/A 07/05/2020 Medications There [...] APRN Ot F41 .9 ANXIETY DISORDER, UNSPECIFIED 07/11/2020 EZEKIEL COLEMAN, RAMIRO Chopra Ot E11. 9 TYPE 2 DIABETES MELLITUS WITHOUT COMPLIC 07/11/2020 RAMIRO FALCON MD Ot F41. 9 ANXIETY DISORDER, UNSPECIFIED 07/11/2020 RAMIRO FALCON MD Ot I10 ESSENTIAL (PRIMARY) HYPERTENSION 07/11/2020 RAMIRO FALCON MD Ot R20. 2 PARESTHESIA OF SKIN 07/11/2020 RAMIRO FALCON MD, Ot T43.595A ADVERSE EFFECT OF OTH ANTIPSYCHOTICS AND Procedures Code Description [place] [address] ROUT INE VENIPUNCTURE 06/01/2013 48609 CMP 06/01/2013 24561 LIPI D PANEL 06/01/2013 02286 TSH 06/01/2013 2000F BLOO D PRESSURE CHECK 07/28/2014 56603 INFL UENZA A & B (IN-HOUSE) 09/27/2014 Results Test Result Range TSH - 07/02/19 16:01 TSH 1.98 mIU/L 0.40-4.50 COVID-19 ([facility]) - 06/07/20 13:04 CMP - 07/05/20 08:09 GLUCOSE 111 mg/dL 65-99 UREA NITROGEN (BUN) 15 mg/dL 7-25 CREATININE 0.73 mg/dL 0.60-1.35 eGFR NON-AFR. GUYANESE 123 mL/min/1.73m2 > OR = 60 eGFR [...] Status Pt. Type Provider Facility Loc./Unit Complaint [id number] 09/27/2014 17:59:00 09/27/2014 23:59: 59 CLS Outpatient ROB MARTINEZ DOMaría Kwok [id number] 07/27/2014 18:24:00 07/27/2014 23:59: 59 CLS Outpatient LIZ MONTALVO MD [id number] 06/01/2013 08:00:00 06/01/2013 23:59: 59 CLS Outpatient ROB MARTINEZ DOMaría Kwok [id number] 07/09/2020 21:28:00 22:39:00 DIS Outpatient RAMIRO FALCON MD [facility] ER R SIDED FACE NUMBNESS [id number] 07/05/2020 20:50:00 22:08:00 DIS Outpatient LUZ BHARDWAJ APRN [facility] ER PALPATIONS, [id number] 07/12/2020 23:43:[address] Emergency GEMMA DANICA KLEIN [facility] ER LOW BLOOD SUGAR [id number] 07/10/2020 13:00:00 ACT [facility] [place] [id number] 07/05/2020 08:00:00 Document Registration [id number] 06/07/2020 10:30:00 Document Registration [id number] 07/02/2019 16:40:00 Document Registration
[2020-07-12 23:52] VITALS: BP 144/93
--- NOTE | 2020-07-13 00:02 | ED General ---
General Chief Complaint: Glucose Problems Stated Complaint: LOW BLOOD SUGAR 76 Nursing Triage Note: patient states woke up from sleep sweaty and shakey. states last meal was at 2130 small snack. patient states FSBS was 76 then waited and did not treat it, rechecked 84. patient denies eating, states just came here. Nursing Sepsis Screen: No Definite Risk Source of Information: Patient History of Present Illness Date Seen by Provider: Jul 12, 2020 Time Seen by Provider: 23:49 Initial Comments PT ARRIVES VIA POV FROM HOME STATES HE HAS "LOW BLOOD SUGAR--76", RECHECKED IT AND IT WAS "STILL LOW--84" STATES HE WENT TO BED AT 2200, BLOOD GLUCOSE WAS 87 WHEN HE WENT TO BED. HAD CEREAL AT 2130, AND BLOOD GLUCOSE WAS 80 AT THAT TIME. HAD SUPPER AT 1900, OF SOME KIND OF SOUP WITH HAMBURGER MEAT AND VEGETABLES STATES HE WOKE UP JUST PRIOR TO ARRIVAL AND WAS SWEATY AND SHAKEY, AND CHECKED HIS BLOOD SUGAR AND IT WAS "LOW" AT 76 HE DID NOT EAT OR DRINK ANYTHING AT ALL, IN ORDER TO TRY TO GET HIS BLOOD GLUCOSE UP, JUST CAME HERE INSTEAD IS NOT HAVING THOSE SYMPTOMS NOW, AND CURRENTLY DOES NOT HAVE ANY SYMPTOMS AT ALL NO NAUSEA/VOMITING/DIARRHEA/ABDOMINAL PAIN NO FEVER NO URINARY SYMPTOMS NO HEADACHE NO DIZZINESS/SYNCOPE NO CHEST PAIN/SHORTNESS OF BREATH/PALPITATIONS NO FEVER OR RECENT ILLNESS PT HAS BEEN DIABETIC FOR > 10 YEARS. PT STATES "LATELY I HAVEN'T BEEN EATING VERY MUCH" STATES HE HAS LOST WEIGHT IN THE LAST "2-3 WEEKS" --STATES HIS WEIGHT DROPPED FROM 280 DOWN TO 264 STATES HE HAD BEEN ON METFORMIN AND GLYBURIDE. 2 MONTHS AGO, HE WAS ALSO STARTED ON INVOKANA. HIS METFORMIN DOSE WAS CONTINUED AT 1000 MG BID. 2 WEEKS AGO, HIS GLYBURIDE WAS STOPPED DUE TO "LOW BLOOD SUGARS" [facility] WAS HERE IN ER LAST WEEK FOR ANXIETY [facility] Allergies and Home Medications Allergies Coded Allergies: No Known Drug Allergies (Unverified , 07/05/20) Home Medications Lisinopril 5 Mg Tablet, Unknown Dose PO DAILY, (Reported) Lorazepam 0.5 Mg Tablet, 0.5 MG PO BID PRN for ANXIETY Prescribed by: LUZ BHARDWAJ on 07/05/202204 Patient Home Medication List Home Medication List Reviewed: Yes Review of Systems Review of Systems Constitutional: see HPI, diaphoresis EENTM: no symptoms reported Respiratory: no symptoms reported Cardiovascular: no symptoms reported Gastrointestinal: no symptoms reported Genitourinary: no symptoms reported Musculoskeletal: no symptoms reported Skin: no symptoms reported Psychiatric/Neurological: Anxiety Hematologic/Lymphatic: No Symptoms Reported Immunological/Allergic: no symptoms reported Past Snextpk-Dphthr-Tmznyd Hx Past Med/Social Hx: Reviewed and Corrections made Patient Social History Alcohol Use: Denies Use Recreational Drug Use: No Smoking Status: Never a Smoker 2nd Hand Smoke Exposure: No Recent Foreign Travel: No Contact w/Someone Who Travel: No Recent Infectious Disease Expo: No Recent Hopitalizations: No Physical Abuse: No Sexual Abuse: No Mistreated: No Fear: No Immunizations Up To Date Tetanus Booster (TDap): Unknown Seasonal Allergies Seasonal Allergies: No Past Medical History Surgeries: No Respiratory: No Cardiac: Yes High Cholesterol, Hypertension Neurological: No Genitourinary: No Gastrointestinal: No Musculoskeletal: No Endocrine: Yes Diabetes, Non-Insulin dep HEENT: No Cancer: No Psychosocial: Yes Anxiety Integumentary: No Blood Disorders: No Physical Exam Vital Signs Vital Signs - First Documented 07/12/20 23:52 Temp 36.8 Pulse 89 Resp 20 B/P (MAP) 144/93 (110) Pulse Ox 95 O2 Delivery Room Air Capillary Refill : Less Than 3 Seconds Height, Weight, BMI Height: '" Weight: lbs. oz. kg; 40.00 BMI Method: General Appearance: No Apparent Distress, WD/WN, Anxious HEENT: PERRL/EOMI, Normal ENT Inspection Neck: Normal Inspection Respiratory: Normal Breath Sounds, No Accessory Muscle Use, No Respiratory Distress Cardiovascular: Regular Rate, Rhythm, No Edema, No JVD, No Murmur, Normal Peripheral Pulses Gastrointestinal: Non Tender, Soft Back: Normal Inspection Extremity: Normal Inspection Neurologic/Psychiatric: Alert, Oriented x3, No Motor/Sensory Deficits, electrolysist II- XII Norm as Tested, Other (ANXIOUS) Progress/Results/Core Measures Suspected Sepsis Recent Fever Within 48 Hours: No Infection Criteria Present: None New/Unexplained Altered Menta: No Sepsis Screen: No Definite Risk SIRS Temperature: Pulse: 89 Respiratory Rate: 20 Blood Pressure 144 /93 Mean: 110 Results/Orders Lab Results My Orders Vital Signs/I&O Capillary Refill : Less Than 3 Seconds Blood Pressure Mean: 110 Point of Care Testing Finger Stick Blood Glucose: 110 Blood Glucose Action Taken: DR. MENENDEZ NOTIFIED. Progress Note : Progress Note ACCUCHECK 110 PT IS ASYMPTOMATIC FOR ENTIRE ER STAY EXTENSIVE DISCUSSION WITH DIABETIC MEDICATIONS, FOOD CHOICES, WHAT TO DO WITH HYPOGLYCEMIA, ETC. IN DISCUSSION ABOUT DIET, PT'S DIET MOSTLY CONSISTS OF CARBOHYDRATES--ADVISED OF NEED FOR INCREASED PROTEIN, AND DECREASING HIS CARBOHYDRATE INTAKE. Departure Impression Primary Impression: Hypoglycemia associated with diabetes Disposition: 01 HOME, SELF-CARE Condition: Improved Departure-Patient Inst. Referrals: [facility] (PCP) Primary Care Physician LIZ LICONA (Family) Primary Care Physician Patient Instructions: Diabetes and Diet, HYPOGLYCEMIA, Low Blood Sugar in People With Diabetes Add. Discharge Instructions: INCREASE YOUR PROTEIN INTAKE, AND DECREASE YOUR CARBOHYDRATE INTAKE TAKE YOUR MEDICATIONS PRESCRIBED CHECK YOUR BLOOD SUGAR 4 TIMES A DAY--FASTING, 2 HOURS AFTER EATING AND AT BEDTIME FOLLOW UP WITH [facility] THIS WEEK FOR FURTHER CARE All discharge instructions reviewed with patient and/or family. Voiced understa nding. DANICA MENENDEZ DO Jul 13, 2020 00:02
== END 2020-07-13 00:10 | disposition home or self-care (01) ==
LOC: EDUNIT# 23:40 → ER 23:43
DX: E11.649 Type 2 diabetes mellitus with hypoglycemia without coma (principal); I10 Essential (primary) hypertension; F41.9 Anxiety disorder, unspecified
CPT/HCPCS: 82962

== ENCOUNTER 2021-09-14 15:18 | Emergency (ER) | payer SELFPAY ==
[~2021-09-14] VITALS: Ht 172.7 cm; Wt 131.5 kg
[~2021-09-14 15:18] MED LIST changes: -LISI-556 PO; +LISI-729 PO
[2021-09-14] MEDS ORDERED: LACTATED RINGERS 1,000 ML IV SCH ×2 (15:30→16:30)
[2021-09-14] MEDS ORDERED: LORazepam INJ 2 MG/ML (ATIVAN) VIAL IVP PRN (15:30)
[2021-09-14] MEDS ORDERED: meTOprolol 5 MG/5 ML (LOPRESSOR) VIAL IV ONE ×2 (15:30→16:30)
--- NOTE | 2021-09-14 15:32 | ED General ---
General Stated Complaint: HX DIABETES/SHAKING/HEAVY BREATHING Source of Information: Patient Exam Limitations: No Limitations (LUZ BHARDWAJ APRN) History of Present Illness Date Seen by Provider: Sep 14, 2021 Time Seen by Provider: 15:30 Initial Comments To ER with c/o heavy breathing, feeling weird. This began about an hour ago while working. History of diabetes on Invokana and metformin. Timing/Duration: 1-2 Days Severity: Moderate Associated Systoms: No Cough, No Headaches, No Malaise, No Nausea/Vomiting (LUZ BHARDWAJ APRN) Allergies and Home Medications Allergies Coded Allergies: No Known Drug Allergies (Unverified , 07/05/20) Patient Home Medication List Home Medication List Reviewed: Yes (LUZ BHARDWAJ APRN) Canagliflozin (Invokana) 100 Mg Tablet, Unknown Dose PO, (Reported) Entered as Reported by: BISI KAUFMAN on 07/09/202150 Lisinopril (Lisinopril) 5 Mg Tablet, Unknown Dose PO DAILY, (Reported) Entered as Reported by: BISI KAUFMAN on 07/09/202150 Lorazepam (Ativan) 0.5 Mg Tablet, 0.5 MG PO BID PRN for ANXIETY Prescribed by: LUZ BHARDWAJ on 07/05/202204 Lorazepam (Ativan) 0.5 Mg Tablet, (Reported) Entered as Reported by: BISI KAUFMAN on 07/09/202144 Metformin HCl (Metformin HCl) 500 Mg Tablet, Unknown Dose PO, (Reported) Entered as Reported by: BISI KAUFMAN on 07/09/202150 Metformin HCl (Metformin HCl) 500 Mg Tablet, 500 MG PO BID Prescribed by: LUZ BHARDWAJ on 09/14/211811 Metoprolol Succinate (Toprol Xl) 50 Mg Tab.er.24h, 50 MG PO DAILY Prescribed by: LUZ BHARDWAJ on 09/14/211811 Review of Systems Review of Systems Constitutional: see HPI EENTM: see HPI Respiratory: no symptoms reported Cardiovascular: no symptoms reported Genitourinary: no symptoms reported Musculoskeletal: no symptoms reported Skin: no symptoms reported Psychiatric/Neurological: No Symptoms Reported Hematologic/Lymphatic: No Symptoms Reported Immunological/Allergic: no symptoms reported (LUZ BHARDWAJ APRN) Past Elynquu-Sirwyr-Ohfysr Hx Immunizations Up To Date Tetanus Booster (TDap): Unknown (LUZ BHARDWAJ APRN) Seasonal Allergies Seasonal Allergies: No (LUZ BHARDWAJ APRN) Past Medical History Surgeries: No Respiratory: No Cardiac: Yes High Cholesterol, Hypertension Neurological: No Genitourinary: No Gastrointestinal: No Musculoskeletal: No Endocrine: Yes Diabetes, Non-Insulin dep HEENT: No Cancer: No Psychosocial: Yes Anxiety Integumentary: No Blood Disorders: No (LUZ BHARDWAJ APRN) Physical Exam Vital Signs Vital Signs - First Documented 09/14/21 15:25 Temp 36.0 Pulse 140 Resp 22 B/P (MAP) 171/118 (135) Pulse Ox 95 O2 Delivery Room Air (ADNICA MENENDEZ DO) Vital Signs Capillary Refill : (LUZ BHARDWAJ APRN) Height, Weight, BMI Height: '" Weight: lbs. oz. kg; 40.00 BMI Method: General Appearance: No Apparent Distress, WD/WN, Obese, Other (hypertensive at 176/117 HR 140 sinus not tachypneic, no kussmaul respirations. Alert and oriented, a little diaphoretic. ) Eyes: Bilateral Eye Normal Inspection, Bilateral Eye PERRL, Bilateral Eye EOMI Neck: Full Range of Motion, Normal Inspection Respiratory: Normal Breath Sounds, No Accessory Muscle Use, No Respiratory Distress Cardiovascular: Regular Rate, Rhythm, Normal Peripheral Pulses Gastrointestinal: Normal Bowel Sounds, Non Tender, Soft Extremity: Normal Capillary Refill, Normal Inspection Neurologic/Psychiatric: Alert, Oriented x3 Skin: Normal Color, Warm/Dry (LUZ BHARDWAJ APRN) Focused Exam Lactate Level 09/14/21 16:07: Lactic Acid Level 3.86*H 09/14/21 17:50: Lactic Acid Level 3.26*H (DANICA MENENDEZ DO) Lactic Acid Level Laboratory Tests Test 09/14/21 16:07 09/14/21 17:50 Lactic Acid Level 3.86 MMOL/L (0.50-2.00) *H 3.26 MMOL/L (0.50-2.00) *H (GEMMADANICA K DO) Progress/Results/Core Measures Suspected Sepsis SIRS Temperature: Pulse: Respiratory Rate: Laboratory Tests 09/14/21 15:27: White Blood Count 9.6 Blood Pressure / Mean: 09/14/21 16:07: Lactic Acid Level 3.86*H 09/14/21 17:50: Laboratory Tests 09/14/21 15:27: Creatinine 1.09, Platelet Count 213, Total Bilirubin 0.4 (LUZ BHARDWAJ APRN) Results/Orders Lab Results Laboratory Tests Test 09/14/21 15:27 09/14/21 15:50 09/14/21 16:07 09/14/21 17:50 Range/Units White Blood Count 9.6 4.3-11.0 10^3/uL Red Blood Count 6.04 H 4.30-5.52 10^6/uL Hemoglobin 17.3 13.3-17.7 g/dL Hematocrit 51 40-54 % Mean Corpuscular Volume 85 80-99 fL Mean Corpuscular Hemoglobin 29 25-34 pg Mean Corpuscular Hemoglobin Concent 34 32-36 g/dL Red Cell Distribution Width 12.3 10.0-14.5 % Platelet Count 213 130-400 10^3/uL Mean Platelet Volume 11.7 9.0-12.2 fL Immature Granulocyte % (Auto) 2 % Neutrophils (%) (Auto) 62 42-75 % Lymphocytes (%) (Auto) 25 12-44 % Monocytes (%) (Auto) 8 0-12 % Eosinophils (%) (Auto) 2 0-10 % Basophils (%) (Auto) 1 0-10 % Neutrophils # (Auto) 5.9 1.8-7.8 10^3/uL Lymphocytes # (Auto) 2.4 1.0-4.0 10^3/uL Monocytes # (Auto) 0.8 0.0-1.0 10^3/uL Eosinophils # (Auto) 0.2 0.0-0.3 10^3/uL Basophils # (Auto) 0.1 0.0-0.1 10^3/uL Immature Granulocyte # (Auto) 0.2 H 0.0-0.1 10^3/uL Sodium Level 139 135-145 MMOL/L Potassium Level 3.5 L 3.6-5.0 MMOL/L Chloride Level 102 98-107 MMOL/L Carbon Dioxide Level 17 L 21-32 MMOL/L Anion Gap 20 H 5-14 MMOL/L Blood Urea Nitrogen 12 7-18 MG/DL Creatinine 1.09 0.60-1.30 MG/DL Estimat Glomerular Filtration Rate 78 BUN/Creatinine Ratio 11 Glucose Level 200 H 70-105 MG/DL Glucometer 206 H 70-110 MG/DL Calcium Level 10.0 8.5-10.1 MG/DL Corrected Calcium 8.5-10.1 MG/DL Total Bilirubin 0.4 0.1-1.0 MG/DL Aspartate Amino Transf (AST/SGOT) 31 5-34 U/L Alanine Aminotransferase (ALT/SGPT) 68 H 0-55 U/L Alkaline Phosphatase 94 40-136 U/L Total Protein 8.6 H 6.4-8.2 GM/DL Albumin 4.6 H 3.2-4.5 GM/DL Beta-Hydroxybutyrate (Chem panel) 0.22 0.00-0.27 MMOL/L Salicylates Level < 5.0 L 5.0-20.0 MG/DL Serum Alcohol < 10 <10 MG/DL Urine Color YELLOW Urine Clarity CLEAR Urine pH 6.0 5-9 Urine Specific [place] 1.015 L 1.016-1.022 Urine Protein NEGATIVE NEGATIVE Urine Glucose (UA) 3+ H NEGATIVE Urine Ketones NEGATIVE NEGATIVE Urine Nitrite NEGATIVE NEGATIVE Urine Bilirubin NEGATIVE NEGATIVE Urine Urobilinogen 0.2 < = 1.0 MG/DL Urine Leukocyte Esterase NEGATIVE NEGATIVE Urine RBC (Auto) NEGATIVE NEGATIVE Urine RBC NONE /HPF Urine WBC NONE /HPF Urine Squamous Epithelial Cells RARE /HPF Urine Crystals NONE /LPF Urine Bacteria TRACE /HPF Urine Casts NONE /LPF Urine Mucus NEGATIVE /LPF Urine Other RARE SPERM /HPF Urine Culture Indicated NO Urine Opiates Screen NEGATIVE NEGATIVE Urine Oxycodone Screen NEGATIVE NEGATIVE Urine Methadone Screen NEGATIVE NEGATIVE Urine Propoxyphene Screen NEGATIVE NEGATIVE Urine Barbiturates Screen NEGATIVE NEGATIVE Ur Tricyclic Antidepressants Screen NEGATIVE NEGATIVE Urine Phencyclidine Screen NEGATIVE NEGATIVE Urine Amphetamines Screen NEGATIVE NEGATIVE Urine Methamphetamines Screen NEGATIVE NEGATIVE Urine Benzodiazepines Screen NEGATIVE NEGATIVE Urine Cocaine Screen NEGATIVE NEGATIVE Urine Cannabinoids Screen NEGATIVE NEGATIVE Lactic Acid Level 3.86 *H 3.26 *H 0.50-2.00 MMOL/L (DANICA MENENDEZ DO) Vital Signs/I&O 09/14/21 09/14/21 15:25 18:28 Temp 36.0 Pulse 140 99 Resp 22 16 B/P (MAP) 171/118 (135) 144/95 Pulse Ox 95 97 O2 Delivery Room Air Room Air (DANICA MENENDEZ DO) Vital Signs/I&O Capillary Refill : (LUZ BHARDWAJ APRN) Departure Communication (Admissions) 1634-lactic acidosis likely secondary to physical exertion + metformin use. DO NOT suspect infectious cause. Will give 2L LR, recheck and after confirming a falling lactic acid level will dc to home to hydrate. States hes feeling better at this time. HR down to 112, BP down to 150/100. 1808-he takes Metformin a gram twice daily though he informs me he has not actually taken it for about 3 or 4 days and today he did take it. He states that when he has checked his sugar after not having taken it he is normally in t he 130-170 range. He believes he needs a lower dose of metformin which is certainly possible. We have agreed to send in a prescription for 500 mg of Metformin twice daily. Prior to initiating this he will check his sugars twice a day and if consistently below 200 he will not start the prescription. If they are above 200 then he will start it. He is also on lisinopril 40 mg daily and has not missed any doses of that. He is concerned about his persistent tachycardia with a heart rate of 102 and hypertension still at about 150/90 after 2 doses of Lopressor. (LUZ BHARDWAJ APRN) Impression Primary Impression: Lactic acidosis Disposition: 01 HOME, SELF-CARE Condition: Improved Departure-Patient Inst. Decision time for Depature: 18:10 (LUZ BHARDWAJ APRN) Referrals: [facility] (PCP) Primary Care Physician LIZ LICONA (Family) Primary Care Physician Patient Instructions: Lactic Acid Blood Test Add. Discharge Instructions: 1. Check your blood sugar twice a day for the next 5 days. If they are over 200 then start the Metformin. If below 200 consistently then you do not need to UNLESS otherwise directed by [facility]. Take the blood pressure medication as directed. Return to ER for any worsening. Scripts Metformin HCl (Metformin HCl) 500 Mg Tablet 500 MG PO BID, #14 TAB Prov: LUZ BHARDWAJ APRN 09/14/21 Metoprolol Succinate (Toprol Xl) 50 Mg Tab.er.24h 50 MG PO DAILY, #20 TAB Prov: LUZ BHARDWAJ APRN 09/14/21 ATTENDING PHYSICIAN NOTE: I WAS PHYSICALLY PRESENT ER PHYSICIAN WHEN THIS PATIENT WAS IN ER, BUT I WAS NOT INVOLVED IN DECISION MAKING OR ANY CARE OF THIS PATIENT. (GEMMADANICA PETER J APRN Sep 14, 2021 15:32 DANICA MENENDEZ DO Sep 16, 2021 20:21
[2021-09-14 15:39] LABS: BASOPHILS # (AUTO) 0.1 10^3/uL (0.0-0.1); BASOPHILS % (AUTO) 1 % (0-10); EOSINOPHILS # (AUTO) 0.2 10^3/uL (0.0-0.3); EOSINOPHILS % (AUTO) 2 % (0-10); HEMATOCRIT 51 % (40-54); HEMOGLOBIN 17.3 g/dL (13.3-17.7); LYMPHOCYTES # (AUTO) 2.4 10^3/uL (1.0-4.0); LYMPHOCYTES % (AUTO) 25 % (12-44); MEAN CORPUSCULAR HEMOGLOBIN 29 pg (25-34); MEAN CORPUSCULAR HGB CONC 34 g/dL (32-36); MEAN CORPUSCULAR VOLUME 85 fL (80-99); MEAN PLATELET VOLUME 11.7 fL (9.0-12.2); MONOCYTES # (AUTO) 0.8 10^3/uL (0.0-1.0); MONOCYTES % (AUTO) 8 % (0-12); NEUTROPHILS # (AUTO) 5.9 10^3/uL (1.8-7.8); NEUTROPHILS % (AUTO) 62 % (42-75); PLATELET COUNT 213 10^3/uL (130-400); WHITE BLOOD COUNT 9.6 10^3/uL (4.3-11.0)
[2021-09-14 15:50] LABS: ALBUMIN 4.6 GM/DL (3.2-4.5)
[2021-09-14 15:51] LABS: CHLORIDE 102 MMOL/L (98-107); POTASSIUM 3.5 MMOL/L (3.6-5.0); SODIUM 139 MMOL/L (135-145)
[2021-09-14 15:53] LABS: GLUCOSE 200 MG/DL (70-105); TOTAL PROTEIN 8.6 GM/DL (6.4-8.2)
[2021-09-14 15:54] LABS: CARBON DIOXIDE 17 MMOL/L (21-32)
[2021-09-14 15:55] LABS: BILIRUBIN,TOTAL 0.4 MG/DL (0.1-1.0)
[2021-09-14 15:56] LABS: ALKALINE PHOSPHATASE 94 U/L (40-136)
[2021-09-14 15:57] LABS: CREATININE SERUM 1.09 MG/DL (0.60-1.30); GFR ESTIMATED 78
[2021-09-14 15:58] LABS: BILIRUBIN,URINE NEGATIVE (NEGATIVE); CLARITY,URINE CLEAR; COLOR,URINE YELLOW; GLUCOSE, URINE (UA) 3+ (NEGATIVE); KETONES,URINE NEGATIVE (NEGATIVE); LEUKOCYTE ESTERASE ,URINE NEGATIVE (NEGATIVE); NITRITE,URINE NEGATIVE (NEGATIVE); PROTEIN,URINE NEGATIVE (NEGATIVE)
[2021-09-14 15:58] LABS: BUN/CREATININE RATIO 11
[2021-09-14 16:00] LABS: ALANINE AMINOTRANSFERASE 68 U/L (0-55)
--- NOTE | 2021-09-14 16:06 | Diagnostic Imaging Report ---
INDICATION: Fever and chills. COMPARISON: 07/05/2020. FINDINGS: Single view of the chest demonstrates clear lungs bilaterally. The heart is normal. There is no pneumothorax. Osseous structures are normal. IMPRESSION: Negative chest. Dictated by: Dictated on workstation # [id number]
[2021-09-14 16:09] LABS: BACTERIA,URINE TRACE /HPF; SQUAMOUS EPITHELIAL CELL,UR RARE /HPF; URINE OTHER RARE SPERM /HPF
[2021-09-14 16:17] LABS: AMPHETAMINE SCREEN, URINE NEGATIVE (NEGATIVE); BARBITURATE SCREEN URINE NEGATIVE (NEGATIVE); BENZODIAZEPINES SCREEN URINE NEGATIVE (NEGATIVE); CANNABINOID SCREEN, URINE NEGATIVE (NEGATIVE); COCAINE SCREEN URINE NEGATIVE (NEGATIVE); METHADONE STAT NEGATIVE (NEGATIVE); METHAMPHETAMINE SCREEN URINE S NEGATIVE (NEGATIVE); OPIATE SCREEN URINE NEGATIVE (NEGATIVE); OXYCODONE STAT NEGATIVE (NEGATIVE); PROPOXYPHENE STAT NEGATIVE (NEGATIVE); TRICYCLIC ANTIDEPRESSANTS SCRE NEGATIVE (NEGATIVE)
[2021-09-14] MEDS ORDERED: METF-397 PO (18:12)
[2021-09-14] MEDS ORDERED: METO-352 PO (18:12)
[2021-09-14 18:28] VITALS: BP 144/95
== END 2021-09-14 18:28 | disposition home or self-care (01) ==
LOC: EDUNIT# 15:18 → ER 15:20
DX: E87.2 Acidosis (principal); I10 Essential (primary) hypertension; F41.9 Anxiety disorder, unspecified; E66.9 Obesity, unspecified; Z68.41 Body mass index [BMI] 40.0-44.9, adult; Z79.84 Long term (current) use of oral hypoglycemic drugs; Z79.899 Other long term (current) drug therapy
CPT/HCPCS: 71045; 80053; 80306; 81000; 82010; 82947; 83605; 85025; 99282; G0480 ×2; 36415; 80320; 80329

== ENCOUNTER 2022-01-13 04:20 | Emergency (ER) | payer OTHER ==
[~2022-01-13] VITALS: Ht 175.3 cm; Wt 127.0 kg
[~2022-01-13 04:20] MED LIST changes: -LISI-729 PO; +LISI5TAB20 PO; +METO-352 PO
[2022-01-13] MEDS ORDERED: FLUORESCEIN (FLUOR-I-STRIPS) 1 MG STRP OU ONE (04:45)
[2022-01-13] MEDS ORDERED: BSS 15 ML IR ONE (04:45)
[2022-01-13] MEDS ORDERED: TETRACAINE 0.5% OPHTH SOLN 4 ML BTL (SINGLE DOSE ONLY) OU ONE (04:45)
--- NOTE | 2022-01-13 04:54 | ED EENT ---
History of Present Illness General Chief Complaint: Eye Problems Stated Complaint: R EYE PAIN; SWELLING; BRUISING; REDNESS Nursing Triage Note: Pt ambulates to ED 7 with c/o waking up with right eye pain/bruising/swelling/redness. Right side of sclera is red. Symptoms started Friday, he went to clinic and was prescribed eye drops. Went back Friday and was told he has a "volcano" in his eye and was made an appt with Dr Jarvis for next Friday. Source: patient History of Present Illness Date Seen by Provider: Jan 13, 2022 Time Seen by Provider: 04:34 Initial Comments PT ARRIVES VIA POV FROM HOME STATES HE WOKE UP Friday01/07/22 WITH PAIN TO RIGHT EYE PT BEGAN TO HAVE INCREASED PAIN TO EYE AND UPPER EYELID STARTED TO SWELL, SO WENT TO [facility] [address] AND WAS PRESCRIBED AN UNKNOWN EYE DROP STATES HE WENT BACK TO [facility] IN [facility] [address] BECAUSE OF INCREASED PAIN AND SWELLING TO THE EYELID AND FEELING LIKE SOMETHING WAS ON THE INSIDE OF HIS UPPER LID ON THE OUTER ASPECT. PT WAS PRESCRIBED KEFLEX 250 MG AND ERYTHROMYCIN EYE OINTMENT, AND REFERRED TO DR.. GOMEZ--[facility] MADE AND APPOINTMENT FOR PT TO SEE HIM ON Friday01/15/21 ( THIS IS PT'S REGULAR EYE DR. --MISSED HIS REGULAR EXAM IN DECEMBER, AND PT HAS NOT ATTEMPTED TO CONTACT HIS OFFICE AT ANY TIME THIS WEEK FOR THIS PROBLEM) STATES HIS EYE IS FEELING MUCH BETTER--DECREASED PAIN, DECREASED SWELLING WOKE UP AT 0100 THIS AM, AND NOTICED THAT THE OUTER PART OF HIS RIGHT EYEBALL WAS NOW RED AND HIS RIGHT UPPER EYELID IS BRUISED NO INJURY TO THE AREA PT DOES ADMIT TO FREQUENTLY RUBBING HIS EYE, AND FREQUENTLY EVERTING HIS RIGHT UPPER EYELID, ESPECIALLY THE LATERAL ASPECT--HAS NOTICED A BUMP UNDER HIS EYELID, LATERAL ASPECT--REPORTS HE HAS BEEN LOOKING AT IT MULTIPLE TIMES A DAY HE STATES THAT THE BUMP IS GETTING SMALLER NO FEVER NO CHANGES IN VISION--PT WEARS GLASSES NO HEADACHE NO DRAINAGE OR MATTING OF THE EYE. NO URI SYMPTOMS OR RECENT ILLNESS NO RASH TO THE AREA NO PAIN TO EYEBALL ITSELF PT IS NOT ON ASPIRIN OR BLOOD THINNERS PT IS DIABETIC. NO PRIOR INJURIES OR DISEASE OF THE EYE, OTHER THAN REGULAR GLASSES PCP: [facility] MARKING CLERK: DR. GOMEZ Allergies and Home Medications Allergies Coded Allergies: No Known Drug Allergies (Unverified , 07/05/20) Patient Home Medication List Home Medication List Reviewed: Yes Canagliflozin (Invokana) 100 Mg Tablet, Unknown Dose PO, (Reported) Entered as Reported by: BISI KAUFMAN on 07/09/202150 Lisinopril (Lisinopril) 5 Mg Tablet, Unknown Dose PO DAILY, (Reported) Entered as Reported by: BISI KAUFMAN on 07/09/202150 Lorazepam (Ativan) 0.5 Mg Tablet, 0.5 MG PO BID PRN for ANXIETY Prescribed by: LUZ BHARDWAJ on 07/05/202204 Lorazepam (Ativan) 0.5 Mg Tablet, (Reported) Entered as Reported by: BISI KAUFMAN on 07/09/202144 Metformin HCl (Metformin HCl) 500 Mg Tablet, Unknown Dose PO, (Reported) Entered as Reported by: BISI KAUFMAN on 07/09/202150 Metformin HCl (Metformin HCl) 500 Mg Tablet, 500 MG PO BID Prescribed by: LUZ BHARDWAJ on 09/14/211811 Metoprolol Succinate (Toprol Xl) 50 Mg Tab.er.24h, 50 MG PO DAILY Prescribed by: LUZ BHARDWAJ on 09/14/211811 Review of Systems Review of Systems Constitutional: no symptoms reported Eyes: See HPI; Denies Blurred Vision, Denies Drainage, Denies Decreased Acuity, Denies Foreign Body Sensation; Inflammation, Pain; Denies Photophobia, Denies Previous Injury, Denies Shadows, Denies Tunnel Vision, Denies Vision Changes; Glasses Nose: no symptoms reported Mouth: no symptoms reported Past Xeqpemp-Yityct-Ezlmxd Hx Patient Social History Tobacco Use?: No Use of E-Cig and/or Vaping dev: No Substance use?: No Alcohol Use?: Yes Alcohol Frequency: Once in a while Pt feels they are or have been: No Immunizations Up To Date Tetanus Booster (TDap): Unknown Influenza Vaccine Up-to-Date: No; Not Current First/Initial COVID19 Vaccinat: Dec 2020 Second COVID19 Vaccination Macho: Jan 2021 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 oz. kg; 41.00 BMI Method: General Appearance: WD/WN, no apparent distress Eyes: right eye PERRL, right eye EOMI, right eye other (VERY MILD SWELLING AND FAINT ERYTHEMA TO RIGHT UPPER LID. VERY SMALL BRUISE TO LATERAL ASPECT OF RIGHT UPPER LID, JUST ABOVE THE LASH LINE. SUBCONJUNCTIVAL HEMORRHAGE NOTED TO LATERAL ASPECT OF RIGHT EYE. REMAINDER OF CONJUNCTIVA IS CLEAR. NO DRAINAGE OR EXCESSIVE WATERING. NO PHOTOPHOBIA. NO PAIN WITH EYE MOVEMENT. STYE IS PRESENT TO THE UNDERSIDE AND LATERAL ASPECT OF RIGHT UPPER EYELID. NO DRAINAGE. NO BONY TENDERNESS. 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 ), warm/dry Procedures/Interventions Eye : Location: right eye Anesthesia (gtts): Tetracaine Progress/Procedure Conclusion FLUORESCEIN STAIN--NO ABRASIONS OR DYE UPTAKE. Progress/Results/Core Measures Results/Orders My Orders Orders - DANICA MENENDEZ DO Tetracaine 0.5% Ophth Nicole Sdv (Tetracai (01/13/22 04:45) Fluorescein Strips (Znxvb-U-Gevopt) (01/13/22 04:45) Balanced Salt Irrigation Soln (Bss Irrig (01/13/22 04:45) Medications Given in ED Current Medications Medications Dose Ordered Sig/Ant Route Start Time Stop Time Status Last Admin Dose Admin Balanced Salt Solution 15 ml ONCE ONCE IR 01/13/22 04:45 01/13/22 04:46 DC 01/13/22 04:46 15 ML Fluorescein Sodium 1 mg ONCE ONCE OU 01/13/22 04:45 01/13/22 04:46 DC 01/13/22 04:46 1 MG Tetracaine HCl 4 ml ONCE ONCE OU 01/13/22 04:45 01/13/22 04:46 DC 01/13/22 04:46 4 ML Vital Signs/I&O 01/13/22 04:27 Temp 35.5 Pulse 90 Resp 18 B/P (MAP) 148/98 (115) Pulse Ox 97 O2 Delivery Room Air Blood Pressure Mean: 115 Departure Impression Primary Impression: Hordeolum of right upper eyelid Additional Impressions: Subconjunctival hemorrhage of right eye Preseptal cellulitis of right upper eyelid Disposition: HOME, SELF-CARE Condition: Stable Departure-Patient Inst. Decision time for Depature: 04:50 Referrals: [facility] ([facility]P) Primary Care Physician LIZ LICONA (Family) Primary Care Physician FRANKLYN ESPINO OD Patient Instructions: Criselda (JUAN MANUEL), Preseptal Cellulitis ED, Subconjunctival Hemorrhage Add. Discharge Instructions: CONTINUE YOUR ORAL ANTIBIOTICS BUT INCREASE THE DOSE TO 500 MG 4 TIMES A DAY--TAKE TWO 250 MG TABLETS 4 TIMES A DAY CONTINUE ERYTHROMYCIN EYE OINTMENT EVERY 4 HOURS DO NOT RUB EYE, DO NOT TOUCH YOUR EYELID OR ANY PART OF YOUR EYE AREA, EXCEPT TO PUT IN MEDICATION TYLENOL AND MOTRIN NEEDED FOR PAIN FOLLOW UP WITH DR. GOMEZ ON FRIDAY SCHEDULED. All discharge instructions reviewed with patient and/or family. Voiced understanding. DANICA MENENDEZ DO Jan 13, 2022 04:54
[2022-01-13 04:58] VITALS: BP 148/98
== END 2022-01-13 04:58 | disposition home or self-care (01) ==
LOC: EDUNIT# 04:20 → ER 04:24
DX: H00.011 Hordeolum externum right upper eyelid (principal); H11.31 Conjunctival hemorrhage, right eye; L03.213 Periorbital cellulitis; I10 Essential (primary) hypertension; E11.9 Type 2 diabetes mellitus without complications; F41.9 Anxiety disorder, unspecified; Z79.84 Long term (current) use of oral hypoglycemic drugs; Z79.899 Other long term (current) drug therapy
CPT/HCPCS: 99281